=== PATIENT | female | born 1970 | race Caucasian/White ===

== ENCOUNTER 2024-03-11 13:24 | Outpatient (OUT) | payer OTHER, SELFPAY ==
--- NOTE | 2024-03-11 13:39 | ECG_ITS ---
[facility] Test Date: 2024-03-11 Pat Name: RUBI UMANA Department: Room: - Gender: Female [employer]ing [employer] Operator: : 1970 Requested By: Sunil Garsia Order Number: [id number] Reading MD: JUN COSTA Measurements Intervals [place] Rate: 74 P: 69 TN: 160 QRS: 43 QRSD: 84 T: 63 QT: 374 QTc: 415 Interpretive Statements SINUS RHYTHM POSSIBLE RIGHT VENTRICULAR CONDUCTION DELAY [RSR (QR) IN V1/V2] No previous ECG available for comparison Electronically Signed On 03-11-2024 23:02:35 EDT by JUN COSTA
--- NOTE | 2024-03-11 14:19 | P.GSHP_ITS ---
History of Present Illness History of Present Illness Chief complaint: urethral tumor, urethral stenosis Narrative: Patient presents for preadmission testing. The patient reports a history of incomplete bladder emptying, frequency and urgency with urination, and nocturia. The patient states she had 2 recent UTIs and was sent to urology for consultation followed by a local cystoscopy which demonstrated a narrowed urethra. The patient denies hematuria, nausea, vomiting, fever, or any other complaints. Review of Systems ROS Narrative REVIEW OF SYSTEMS: Negative except as stated in HPI, ten or more systems reviewed. Constitutional: No fever, chills, weakness ENT: No sore throat or epistaxis Cardiovascular: No edema, chest pain, palpitations, or activity intolerance Respiratory: No shortness of breath, cough, or wheezing Musculoskeletal: No joint pain or swelling Gastrointestinal: No abdominal pain, constipation, diarrhea, or vomiting Genitourinary: No dysuria or hematuria Neurological: No numbness, tingling, weakness, or headache Psychiatric: No mood changes PFSH [facility] Medical History (Updated 03/11/24 @ 14:16 by Caryn Shah NP) Spinal cord tumor (~2019) ?D49.7 - Neoplasm of unspecified behavior of endocrine glands and other parts of nervous system (ICD-10) Neck pain ?M54.2 - Cervicalgia (ICD-10) Back pain ?M54.9 - Dorsalgia, unspecified (ICD-10) Depression ?F32.A - Depression, unspecified (ICD-10) Migraine ?G43.909 - Migraine, unspecified, not intractable, without status migrainosus (ICD-10) Urinary tract infection ?N39.0 - Urinary tract infection, site not specified (ICD-10) IBS (irritable bowel syndrome) ?K58.9 - Irritable bowel syndrome without diarrhea (ICD-10) 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 - Other somatoform disorders (ICD-10) GERD (gastroesophageal reflux disease) ?K21.9 - Gastro-esophageal reflux disease without esophagitis (ICD-10) Diverticulitis ?K57.92 - Diverticulitis of intestine, part unspecified, without perforation or abscess without bleeding (ICD-10) Anxiety ?F41.9 - Anxiety disorder, unspecified (ICD-10) Urethral stenosis Urethral tumor ?D49.59 - Neoplasm of unspecified behavior of other genitourinary organ (ICD- 10) Surgical History (Updated 03/11/24 @ 14:16 by Caryn Shah NP) S/P cystoscopy (02/27/24) ?Z98.890 - Other specified postprocedural states (ICD-10) History of spinal surgery (~2018) ?Z98.890 - Other specified postprocedural states (ICD-10) History of hernia repair ?Z98.890 - Other specified postprocedural states (ICD-10) ?Z87.19 - Personal history of other diseases of the digestive system (ICD-10) History of colonoscopy ?Z98.890 - Other specified postprocedural states (ICD-10) History of esophagogastroduodenoscopy (EGD) ?Z98.890 - Other specified postprocedural states (ICD-10) History of cholecystectomy ?Z90.49 - Acquired absence of other specified parts of digestive tract (ICD- 10) History of section ?Z98.891 - History of uterine scar from previous surgery (ICD-10) Family History (Updated 03/11/24 @ 14:03 by Caryn Shah NP) Other Family history of DVT Family history of heart disease Family history of hypertension Family history of myocardial infarction Social History (Updated 03/11/24 @ 13:57 by Caryn Shah NP) Within the past year, how often did you have a drink containing alcohol: 4 or more times a week Within the past year, how many standard drinks containing alcohol did you have on a typical day: 1 or 2 Total score: 0 Score interpretation: A score less than 3 is consistent with normal alcohol consumption. Smoking status: Former smoker Non-prescribed substance use: denies use Previous occupational history: Billing Department Supervisor Highest level of school completed/degree received: high school graduate Meds Home Medications and Allergies Home Medications ?Medication ?Instructions ?Recorded ?Confirmed ?Type alprazolam 0.5 mg tablet 0.5 mg PO DAILY PRN anxiety 03/11/24 03/11/24 History citalopram 20 mg tablet 20 mg PO QPM 03/11/24 03/11/24 History esomeprazole magnesium 40 mg 40 mg PO Q24H PRN heartburn 03/11/24 03/11/24 History capsule,delayed release estradiol 0.01% (0.1 mg/gram) 1 appful vaginal .3 times weekly 03/11/24 03/11/24 History vaginal cream gabapentin 300 mg capsule 300 mg PO DAILY 03/11/24 03/11/24 History magnesium 200 mg tablet 200 mg PO DAILY 03/11/24 03/11/24 History sour aguirre extract 1,000 mg 1,000 mg PO DAILY 03/11/24 03/11/24 History capsule Allergies Allergy/AdvReac Type Severity Reaction Status Date / Time amoxicillin Allergy Rash Verified 03/11/24 13:52 methylprednisolone Allergy Rash Verified 03/11/24 13:52 [From Medrol] minocycline Allergy Dizziness Verified 03/11/24 13:52 Sulfa (Sulfonamide Allergy Rash Verified 03/11/24 13:52 Antibiotics) Exam Narrative Exam Narrative: Constitutional: Awake, alert, comfortable, well-appearing, nontoxic, interactive, vital signs as charted Head: Normocephalic, atraumatic Neck: Supple, normal appearance, normal range of motion, no meningeal signs, no lymphadenopathy Respiratory: No respiratory distress, breath sounds clear Cardiovascular: Regular rate and rhythm, strong and regular heart tones Abdomen: Nontender, normal bowel sounds, soft, no CVA tenderness Musculoskeletal: Normal gait, no swelling or edema Skin: No rashes or induration, no lesions, only visible skin inspected Neuro: No neurological deficits, normal sensation Psychiatric: Oriented ?3, normal affect Assessment and Plan Assessment and Plan (1) Urethral tumor: (2) Urethral stenosis: Plan Cystoscopy, urethral dilation, urethral biopsy scheduled with Dr. Matthews March 18, 2024
[2024-03-11 14:41] LABS: Anion Gap 8.5; BUN Creatinine Ratio 17.8; Calcium 9.2 mg/dL (8.5-10.1); Chloride 104 mmol/L (98-107); Estimated GFR (African America >60 (>=60); Estimated GFR (Non-African Ame >60 (>=60); Glucose 104 mg/dL (74-106); Potassium 4.5 mmol/L (3.5-5.1); Sodium 137 mmol/L (136-145)
== END 2024-03-11 13:25 | disposition home or self-care (01) ==
LOC: PST 13:28
PROVIDERS: PCP Family Medicine; Visit Provider Urology
DX: Z01.810 Encounter for preprocedural cardiovascular examination (principal); Z01.812 Encounter for preprocedural laboratory examination; Z01.818 Encounter for other preprocedural examination; D30.4 Benign neoplasm of urethra
CPT/HCPCS: 36415; 80048; 93005; G0463

== ENCOUNTER 2024-03-18 12:30 | Day surgery (SDC) | payer OTHER, SELFPAY ==
[2024-03-11 14:13] VITALS: BP 128/86; PULSE 81; TEMP 36.4; O2SAT 98; BMI 21.1
[2024-03-18 12:35] VITALS: BMI 21.0; BMI 26.8
--- OUTSIDE RECORDS SUMMARY | 2024-03-18 12:38 | XMS_ITS | CCD ---
Author Organization [facility] Care Team Providers Care Front Desk Monitor Name Role Phone SUNIL TORRE Primary Care Unavailable UNKNOWN, PROVIDER Attending Unavailable NICHO, SUNIL Referring Unavailable UNKNOWN, PROVIDER Admitting Unavailable UNKNOWN, PROVIDER Attending Unavailable UNKNOWN, PROVIDER Admitting Unavailable KUNSilvano, SUNIL Referring Unavailable KUNSilvano, SUNIL Primary Care Unavailable UNKNOWN, PROVIDER Attending Unavailable UNKNOWN, PROVIDER Admitting Unavailable NICHO, SUNIL Referring Unavailable SUNIL TORRE Primary Care Unavailable LOWELL MATT Admitting Unavailable LOWELL MATT Attending Unavailable NICHO, DR BARBER Primary Care Unavailable LOWELL MATT Consulting Unavailable Shamika Bullock Consulting Unavailable Sunil Torre Unavailable Georgia Deluna Unavailable Maria Inse Rodriguez Unavailable Nicho, DO Barber Primary Care Provider MD Lisandro Flores Attending Provider Nicho, Sunil Primary Care Provider [phone] MD Lisandro Flores Attending Provider Nicho, DO Barber Primary Care Provider DO Sunil Torre Attending Provider [phone] MD Lisandro Flores Attending Provider Georgia Washington Unavailable Austins, DO Barber Primary Care Provider [phone] DO Sunil Torre Attending Provider [phone] Nicho, Sunil Primary Care Provider MD Lisandro Flores Attending Provider ISRA NEAL Attending Unavailable ISRA NEAL Referring Unavailable ISRA NEAL Referring Unavailable DO Silvestre Torrean Attending Provider [phone] LISANDRO FLORES Attending Unavailable FLORES, LISANDRO Referring Unavailable SANDRA, LISANDRO Referring Unavailable SUNIL TORRE Primary Care Physician DO Sunil Torre Primary Care Provider MD Lisandro Flores Attending Provider [phone] MD Estephania Matthews Attending Provider Estephania Matthews. Attending Unavailable KUNS, SUNIL Referring Unavailable Helene Villafana Attending Unavailable Estephania Matthews. Referring Unavailable Estephania Matthews Attending Unavailable Kuns, Sunil Attending Unavailable Kuns, Sunil Admitting Unavailable Kuns, Sunil Primary Care Unavailable Kuns, Sunil Attending Unavailable Kuns, Sunil Admitting Unavailable Kuns, Sunil Primary Care Unavailable LuEstephania fine M Admitting Unavailable Estephania Matthews Attending Unavailable Kuns, Sunil Primary Care Unavailable Kuns, Sunil Attending Unavailable Kuns, Sunil Admitting Unavailable Kuns, Sunil Primary Care Unavailable Kuns, Sunil Attending Unavailable Kuns, Sunil Admitting Unavailable Kuns, Sunil Primary Care Unavailable Kuns, Sunil Attending Unavailable Kuns, Sunil Admitting Unavailable Flores, Lisandro L Admitting Unavailable Flores, Lisandro L Attending Unavailable Kuns, Sunil Primary Care Unavailable Flores, Lisandro L Admitting Unavailable Flores, Lisandro L Attending Unavailable Kuns, Sunil Primary Care Unavailable Allergies Allergy Classification Reported Allergen(s) Allergy Type Date of Onset Reaction(s) Facility (20 sources) Amoxicillin; Translations: [AMOXICILLIN] Drug Allergy 10-16-19 rash, Eruption of skin (disorder) [facility] (2 sources) methylPREDNISolone; Translations: [MEDROL] Drug Allergy 10-16-19 [facility] (20 sources) Minocycline; Translations: [MINOCIN] Drug Allergy 10-16-19 lightheaded [facility] (2 sources) Sulfamethoxazole / Trimethoprim; Translations: [BACTRIM] Drug Allergy 10-16-19 [facility] (1 source) Citalopram Drug Allergy [facility] (20 sources) methylPREDNISolone; Translations: [METHYLPREDNISOLONE] Drug Allergy 07-18-19 rash, Eruption of skin (disorder) [facility] (20 sources) Sulfamethoxazole / Trimethoprim; Translations: [sulfamethoxazole-trim ethoprim] Drug Allergy rash, Eruption of skin (disorder) [facility] (20 sources) Minocycline; Translations: [minocycline] Drug Allergy 07-18-19 Eruption of skin (disorder) [facility] (15 sources) Sulfamethoxazole; Translations: [sulfamethoxazole] Drug Allergy 07-18-19 [facility] (15 sources) Trimethoprim; Translations: [trimethoprim] Drug Allergy 07-18-19 [facility] (20 sources) Sucralfate; Translations: [sucralfate] Drug Allergy 06-28-19 Upset stomach (finding) [facility] (2 sources) Sulfamethoxazole / Trimethoprim; Translations: [SULFAMETHOXAZOLE-TRIM ETHOPRIM] Drug Allergy 02-29-20 [facility] (1 source) methylPREDNISolone Drug Allergy 12-27-19 [facility] (1 source) Sucralfate Drug Allergy 12-27-19 [facility] Medications Current Medications Medication Drug Class(es) Dates Sig (Normalized) Sig (Original) ALPRAZolam 0.5 mg oral tablet (20 sources) Benzodiazepine Start: 12-27-2023 End: 12-27-2023 take 1 tablet by mouth every six hours Alprazolam (Xanax) 0.5 mg tablet Active 0.5 MG PO Every 6 hours December 27, 2023 11:46am Start: 10-01-2022 take 1-2 tablets by mouth every six hours as needed Xanax 0.5 MG 1--2 tablets Orally Q 6 hrs prn PRN Sep, Not-Taking/PRN Start: 01-30-2022 take 1-2 tablets by mouth every six hours as needed Xanax 0.5 MG 1--2 tablets Orally Q 6 hrs prn PRN Jan, Active Start: 08-25-2021 take 1-2 tablets by mouth every six hours as needed Xanax 0.5 MG 1--2 tablets Orally Q 6 hrs prn PRN Aug, Active Start: 03-13-2021 take 1-2 tablets by mouth every six hours as needed Xanax 0.5 MG 1--2 tablets Orally Q 6 hrs prn PRN Feb, Active betamethasone 1 mg/ml topical cream (3 sources) Corticosteroid Start: 07-24-2022 Betamethasone Valerate 0.1 % 1 application Externally Once a day Jul, Active calcium carbonate 1500 mg / cholecalciferol 800 unt oral tablet (14 sources) Vitamin D Start: 06-30-2020 take 1 tablet by mouth once daily Calcium Carbonate-Vitamin D3 (Caltrate With Vitamin D3) 600 mg(1,500mg) -800 unit Tablet Active 1 TAB PO Daily June 30, 2020 1:00am citalopram 20 mg oral tablet (20 sources) Serotonin Reuptake Inhibitor Start: 12-27-2023 take 20 mg by mouth once daily Citalopram Active 20 MG PO Daily December 27, 2023 12:00am Start: 04-25-2021 take 1 tablet by carolin th every twenty-four hours Citalopram Hydrobromide 20 MG 1 tablet Orally Once a day for 90 days Apr, Active Start: 07-18-2020 End: 12-27-2023 take 1 tablet by mouth once daily at bedtime Citalopram (Celexa) 10 mg Tablet Discontinued 10 MG PO Daily at bedtime July 18, 2020 1:00am December 27, 2023 10:28am Start: 06-30-2020 End: 07-18-2020 take 1 tablet by mouth once daily Citalopram (Celexa) 40 mg Tablet Discontinued 40 MG PO Daily June 30, 2020 1:00am July 18, 2020 3:44pm esomeprazole 40 mg delayed release oral capsule (20 sources) Proton Pump Inhibitor Start: 06-30-2020 Esomeprazole Magnesi um (Nexium) 40 mg capsule,delayed release(DR/EC) Active 40 MG PO As Directed June 30, 2020 1:00am 2 capsules take 2 capsules by m outh every twenty-four hours NexIUM 40 MG 2 capsules Orally Once a day for 90 days Active Fluocinonide (18 sources) Corticosteroid Fluocinonide 0.0 5 % 1 application Externally Twice a day Active Fluocinonide 0.0 5 % 1 application Externally Twice a day Active furosemide 20 mg oral tablet (13 sources) Loop Diuretic Start: 01-24-2021 take 1 tablet by mouth once daily as needed Lasix 20 MG 1 tablet Orally Once a day prn 10 Jan, 2021 Active gabapentin 300 mg oral capsule (20 sources) Anti-epileptic Agent Start: 12-27-2023 take 300 mg by mouth twice daily Gabapentin Active 300 MG PO Twice daily December 27, 2023 10:28am Start: 11-17-2023 End: 12-27-2023 take 300 mg by mouth once Gabapentin Discontinued 300 MG PO Once November 17, 2023 12:00am December 27, 2023 10:29am Start: 01-30-2022 take 1 capsule by mo [facility] every twelve hours Gabapentin 300 MG 1 capsule Orally Twice a day for 90 days Jan, Active hydrOXYzine hydrochloride 50 mg oral tablet (3 sources) Antihistamine Start: 09-25-2022 take 1 tablet by mouth every six hours as needed hydrOXYzine HCl 50 MG 1 tablet Orally q 6 hours prn itch Sep, Active magnesium oxide 400 mg oral tablet (14 sources) Start: 06-30-2020 take 400 mg by mouth once daily Magnesium Oxide Active 400 MG PO Daily June 30, 2020 1:00am predniSONE 20 mg oral tablet (3 sources) Start: 09-25-2022 predniSONE 20 MG 1 tablet Orally BID x 5 days then daily x 5 days for 10 days Sep, Active pregabalin 150 mg oral capsule (20 sources) Start: 01-04-2022 take 1 capsule by mouth every twelve hours Lyrica 150 MG 1 capsule Orally Twice a day Dec, Active Start: 10-06-2021 take 1 capsule by mo uth every twelve hours Lyrica 150 MG 1 capsule Orally Twice a day Sep, Active Start: 06-30-2021 take 1 capsule by mo uth every twelve hours Lyrica 150 MG 1 capsule Orally Twice a day Jun, Active Start: 04-04-2021 take 1 capsule by mo uth every twelve hours Lyrica 150 MG 1 capsule Orally Twice a day Mar, Active Start: 07-18-2020 End: 11-17-2023 take 1 capsule by mouth twice daily Pregabalin (Lyrica) 50 mg Capsule Discontinued 50 MG PO Twice daily July 18, 2020 1:00am November 17, 2023 11:21am sour pitts allergenic extract (14 sources) Non-Standardized Food Allergenic Extract, Non-Standardized Plant Allergenic Extract Start: 06-30-2020 Sour Pitts Extract (Tart Pitts Extract) 1,000 mg Capsule Active 1000 MG PO As Directed June 30, 2020 12:00am Start: 06-30-2020 Sour Pitts Ex tract (Tart Pitts Extract) 1,000 mg Capsule Active 1000 MG PO As Directed June 30, 2020 1:00am sucralfate 1000 mg oral tablet (2 sources) Aluminum Complex Start: 04-03-2022 take 1 tablet by mouth every twelve hours Carafate 1 GM 1 tablet on an empty stomach Orally Twice a day for 30 day(s) Mar, Active terbinafine 250 mg oral tablet (7 sources) Allylamine Antifungal Start: 06-21-2021 take 1 tablet by mouth every twenty-four hours Terbinafine HCl 250 MG 1 tablet Orally Once a day Jun, Active Turmeric Curcumin 500 MG (20 sources) Turmeric Curcumi n 500 MG as directed Orally Active Turmeric Root Extract (14 sources) Start: 06-30-2020 take 1 tablet by mouth once daily Turmeric Root Extract Active 1076 MG PO Daily June 30, 2020 12:00am 2 tablets Start: 06-30-2020 take 1 tablet by mouth once da jacek Turmeric Root Extract Active 1076 MG PO Daily June 30, 2020 1:00am 2 tablets Completed/Discontinued Medications Medication Drug Class(es) Dates Sig (Normalized) Sig (Original) ciprofloxacin 500 mg oral tablet (20 sources) Quinolone Antimicrobial Start: 12-12-2023 End: 12-27-2023 take 1 tablet by mouth twice daily Ciprofloxacin Hcl (Cipro) 500 mg tablet Discontinued 500 MG PO Twice daily December 12, 2023 12:00am December 27, 2023 10:28am Start: 08-13-2023 End: 11-17-2023 take 1 tablet by mouth once daily Ciprofloxacin Hcl Discontinued 500 MG PO .COMPLEX 40 August 13, 2023 1:00am November 17, 2023 11:20am 500 mg orally 1 tablet BID for 10 days and then 1 tablet daily for the next 20 days; Start: 08-02-2023 End: 08-13-2023 take 1 tablet by mouth twice daily Ciprofloxacin Hcl (Cipro) 500 mg tablet Discontinued 500 MG PO Twice daily 05 04August 02, 2023 1:00am August 13, 2023 3:19pm doxepin hydrochloride 25 mg oral capsule (6 sources) Tricyclic Antidepressant take 1 capsule by mouth every twenty-four hours Doxepin HCl 25 MG 1 capsule at bedtime Orally Once a day Not-Taking famotidine 26.6 mg / ibuprofen 800 mg oral tablet (6 sources) Nonsteroidal Anti-inflammatory Drug, Histamine-2 Receptor Antagonist Start: take 1 tablet by mouth every eight hours Duexis 800-26.6 MG 1 tablet Orally Three times a day for 90 days PRN Jul, Not-Taking mesalamine 1200 mg delayed release oral tablet (20 sources) Aminosalicylate Start: End: Mesalamine (Lialda) 1.2 gram tablet,delayed release (DR/EC) Discontinued 1.2 GM PO As Directed June 30, 2020 1:00am November 17, 2023 11:21am 4 tablets Start: 06-20-2020 take 4 tablets by [facility] every twenty-four hours Mesalamine 1.2 GM 4 TABLETS Orally Once a day Jun, Not-Taking nitrofurantoin, macrocrystals 25 mg / nitrofurantoin, monohydrate 75 mg oral capsule (4 sources) Nitrofuran Antibacterial Start: 12-27-2023 End: 02-10-2024 take 1 capsule by mouth twice daily at mealtime Nitrofurantoin Monohyd/M-Cryst (Macrobid) 100 mg capsule Discontinued 100 MG PO Twice daily December 27, 2023 12:00am February 10, 2024 1:03pm must administer with a meal/food spironolactone 100 mg oral tablet (20 sources) Aldosterone Antagonist Start: 06-30-2020 End: 11-17-2023 take 1 tablet by mouth once daily Spironolactone Discontinued 100 MG PO Daily June 30, 2020 1:00am November 17, 2023 11:21am 0.5 tablet traMADol hydrochloride 50 mg oral tablet (14 sources) Opioid Agonist Start: 08-01-2020 End: 11-17-2023 take 0.5-1 tablets by mouth every six hours as needed for pain Tramadol (Ultram) 50 mg tablet Discontinued 50 MG PO Q6H 30 7 August 01, 2020 1:00am November 17, 2023 11:22am 1/2 - 1 tab po q 6 hours prn pain Problems Active Problems Problem Classification Problem Date Documented Da te Episodic/Chronic Abdominal pain (15 sources) Right upper quadrant pain; Translations: [Right upper quadrant pain] Onset: 1 Resolved: 1 Episodic Acquired foot deformities (9 sources) Bunion; Translations: [Hallux valgus (acquired), unspecified foot] Onset: 2 Resolved: 2 Chronic Anxiety disorders (20 sources) Anxiety about body function or health; Translations: [Other specified anxiety disorders] Onset: 1 Resolved: 2 Chronic Biliary tract disease (14 sources) Cholecystitis; Translations: [Cholecystitis, unspecified] 08-01-2020 Episodic Cancer of brain and nervous system (20 sources) Ependymoma ; 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, unspecified] Onset: 4 Chronic Cancer of brain and nervous system (1 source) Personal history of malignant neoplasm of brain Episodic Digestive congenital anomalies (20 sources) Congenital cystic disease of liver; 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] 12-27-2023 Chronic Diseases of white blood cells (20 sources) Leukopenia; Translations: [Decreased white blood cell count, unspecified] Chronic Disorders of lipid metabolism (20 sources) Mixed hyperlipidemia; Translations: [Mixed hyperlipidemia] 12-27-2023 Chronic Diverticulosis and diverticulitis (1 source) Diverticulitis 01-10-2024 Chronic Esophageal disorders (20 sources) Gastroesophageal reflux disease; Translations: [Gastro-esophageal reflux disease without esophagitis] Chronic Essential hypertension (20 sources) Hypertensive disorder; Translations: [Essential (primary) hypertension] 12-27-2023 Chronic Genitourinary symptoms and ill-defined conditions (20 sources) Dysuria; Translations: [Other abnormal findings in urine] Onset: 4 Episodic Immunizations and screening for infectious disease (20 sources) Encounter for screening for other viral diseases; Translations: [Contact with and (suspected) exposure to other viral communicable diseases] Onset: 1 Resolved: 2 Episodic Mycoses (17 sources) Tinea unguium; Translations: [Onychomycosis] Onset: 2 Resolved: 2 Episodic Neoplasms of unspecified nature or uncertain behavior (1 source) Neoplasm of spinal cord 01-10-2024 Episodic Noninfectious gastroenteritis (20 sources) Microscopic colitis; Translations: [Microscopic colitis, unspecified] Chronic Nonspecific chest pain (9 sources) Chest pain; Translations: [Chest pain, unspecified] Onset: 2 Resolved: 2 Episodic Other aftercare (20 sources) H/O: high risk medication; Translations: [Other termination clerk (current) drug therapy] Episodic Other aftercare (5 sources) Drug therapy finding; Translations: [Other termination clerk (current) drug therapy] 12-27-2023 Episodic Other connective tissue disease (4 sources) Pain in right foot; Translations: [PAIN IN RIGHT FOOT] Onset: 2 Episodic Other connective tissue disease (1 source) Pain in left foot; Translations: [PAIN IN LEFT FOOT] Onset: 2 Episodic Other ear and sense organ disorders (1 source) Otalgia, right ear Episodic Other ear and sense organ disorders (1 source) Impacted cerumen, left ear Episodic Other ear and sense organ disorders (12 sources) Noise effects on inner ear; Translations: [Noise effects on inner ear, bilateral] 12-27-2023 Episodic Other ear and sense organ disorders (1 source) Noise effects on inner ear, bilateral Episodic Other gastrointestinal disorders (20 sources) Irritable bowel syndrome with diarrhea; Translations: [Irritable bowel syndrome with diarrhea] 12-27-2023 Chronic Other gastrointestinal disorders (1 source) Irritable bowel syndrome 01-10-2024 Chronic Other gastrointestinal disorders (18 sources) Constipation; Translations: [Constipation, unspecified] Episodic Other gastrointestinal disorders (14 sources) Diarrhea; Translations: [Diarrhea, unspecified] 06-03-2020 Episodic Other inflammatory condition of skin (20 sources) Itching ; Translations: [Pruritus, unspecified] Episodic Other inflammatory condition of skin (6 sources) Pruritus, unspecified; Translations: [Unspecified pruritic disorder] Onset: 1 Resolved: 1 Episodic Other liver diseases (1 source) Liver cyst 01-10-2024 Chronic Other nervous system disorders (1 source) Neuropathy 01-10-2024 Chronic Other non-traumatic joint disorders (10 sources) Hip joint crepitus; Translations: [Other specific joint derangements of right hip, not elsewhere classified] 02-10-2024 Chronic Other non-traumatic joint disorders (1 source) Other specific joint derangements of right hip, not elsewhere classified Chronic Other non-traumatic joint disorders (16 sources) Joint pain; Translations: [Pain in unspecified joint] Episodic Other non-traumatic joint disorders (1 source) Pain in right hip Episodic Other non-traumatic joint disorders (1 source) Pain in left hip Episodic Other non-traumatic joint disorders (3 sources) Pain in right shoulder; Translations: [Pain in joint, shoulder region] 02-10-2024 Episodic Other skin disorders (3 sources) Rash and other nonspecific skin eruption; Translations: [Rash and other nonspecific skin eruption] 02-10-2024 Episodic Other upper respiratory disease (7 sources) Nasal sinus problem; Translations: [Other specified disorders of nose and nasal sinuses] Episodic Other upper respiratory disease (1 source) Other specified disorders of nose and nasal sinuses Episodic Other upper respiratory infections (20 sources) Acute upper respiratory infection, unspecified; Translations: [Viral upper respiratory tract infection] Onset: 1 Resolved: 1 Episodic Residual codes; unclassified (3 sources) Flushing; Translations: [Flushing] Onset: 4 02-10-2024 Episodic Spondylosis; intervertebral disc disorders; other back problems (20 sources) Thoracic back pain; Translations: [Pain in thoracic spine] Onset: 1 Resolved: 2 Episodic Thyroid disorders (20 sources) Hypothyroidism; Translations: [Hypothyroidism, unspecified] 12-27-2023 Chronic Unclassified (1 source) Encounter for general adult medical examination without abnormal findings; Translations: [Encounter for general adult medical examination without abnormal findings] Onset: 3 Urinary tract infections (4 sources) Urinary tract infectious disease; Translations: [Urinary tract infection, site not specified] Onset: 4 Episodic Past or Other Problems Problem Classification Problem Date Documented Da te Episodic/Chronic Bacterial infection; unspecified site (9 sources) Infection due to Escherichia coli; Translations: [Other bacterial infections of unspecified site] Onset: 08-13-2023 08-13-2023 Episodic Other non-traumatic joint disorders (1 source) Pain in unspecified joint Onset: 08-02-2021 Resolved: 08-02-2021 Episodic Residual codes; unclassified (1 source) Edema, unspecified Onset: 04-25-2021 Resolved: 04-25-2021 Episodic Results Test Name Value Interpretation Reference Range Facility [facility] 02-27-2024 L Specimen: [id number] Received: 03/04/24 Status: CHITRA Fitzpatrick Num: [id number] Spec Type: Cytology Subm Dr: Estephania Matthews MD Tissues: A URINECYTO (URINE) Procedures: Cyto Prepstain, PAPSTN Age/ Patient Sex Location Account Attending Physician Lul Umana 53/F [place] [id number] Estephania Matthews MD SPEC NUM: [id number] RECD: 03/04/24 STATUS: CHITRA HERNANDEZBrant NUM: [id number] MARCOS: 02/27/[address]: Estephania Matthews MD ENTERED: 03/04/[address] [facility] [address]: SPEC TYPE: Cytology DEPT: CNG ENTERED BY: [id number] RECV BY: [id number] ORDERED: Cyto Prepstain, PAPSTN ORDERED: Cyto Prepstain, PAPSTN Pathological Diagnosis Urine cytology: -Negative for malignant cell -Only very scant cellularity, including few scattered RBC Clinical Information RECURRENT UTI'S Gross Description Received is 100 mL yellow slightly hazy unfixed fluid for cytology said to have been obtained as urine. ThinPrep preparations are prepared for microscopic examination. (CC/kp) Microscopic Description Microscopic examinations are performed supporting the above interpretation CPT Codes 39761 ---- ---- Specimen: [id number] Received: 03/04/24-1206 Status: CHITRA Fitzpatrick Num: [id number] Spec Type: Cytology Subm Dr: Estephania Matthews MD Tissues: A URINECYTO (URINE) Procedures: Cyto Prepstain, PAPSTN ---- Patient: Lul Umana [id number] (Continued) ---- Signed (signature on file) Ceasar Mancia MD 03/06/24 1108 Normal [facility] Estradiolon 02-11-2024 Estradiol <5.0 Normal . [facility] Comment on above: Result Comment: Adul t Female Range Follicular phase 12.5 - 166.0 Ovulation phase 85.8 - 498.0 Luteal phase 43.8 - 211.0 Postmenopausal <6.0 - 54.7 1st trimester 215.0 - >4300.0 Kristy ECLIA methodology Performed at: [address] [id number] Wastewater Process Engineer: Forest De La Cruz PhD, Phone: [phone] PERFORMED BY: [place] [address] PATHOLOGIST DRUM SANDER TEDDY KWON M.D. Performed By: #### E ST, ESTRADIOL #### [facility] , #### FSH #### [address] Estrogens, Totalon 4 Estrogens, Total 40 pg/mL Normal . [facility] Comment on above: Result Comment: Prep ubertal < 40 Female Cycle: 1-10 Days 16 - 328 11-20 Days 34 - 501 21-30 Days 48 - 350 Post-Menopausal 40 - 244 Performed at: [address] [id number] Wastewater Process Engineer: Evan Abraham MD, Phone: [phone] Performed By: #### E ST, ESTRADIOL #### [facility] , #### FSH #### [address] Follicle Stimulating Hormone on 02-11-2024 Follicle Stimulating Hormone 83.0 m[iU]/mL Normal [facility] Comment on above: Result Comment: FEMA LE NORMALS (PREMENOPAUSE) MID-FOLLICULAR PHASE: 3.9-8.8 mIU/mL MID-CYCLE PEAK: 4.5-22.5 mIU/mL MID-LUTEAL PHASE: 1.8-5.1 mIU/mL FEMALE NORMALS (POSTMENOPAUSE): 16.7-113.6 mIU/mL MALE NORMALS: 1.3-19.3 mIU/mL PERFORMED BY: [place] [address] PATHOLOGIST DRUM SANDER TEDDY KWON M.D. Performed By: #### E ST, ESTRADIOL #### [facility] , #### FSH #### [address] [address] [facility] Follitropin [Units/volume] i n Serum or PlasmaOrdered By: Sunil Torre on 02-11-2024 Follitropin Qn 83.0 m[IU]/mL [facility] Comment on above: FEMALE NORMALS (LAURA ENOPAUSE) MID-FOLLICULAR PHASE: 3.9-8.8 mIU/mL MID-CYCLE PEAK: 4.5-22.5 mIU/mL MID-LUTEAL PHASE: 1.8-5.1 mIU/mLFEMALE NORMALS (POSTMENOPAUSE): 16.7-113.6 mIU/mLMALE NORMALS: 1.3-19.3 mIU/mL Serum or plasma estradiol (E 2) measurement (mass/volume)Ordered By: Sunil Torre on 02-11-2024 E2 [Mass/Vol] pg/mL . [facility] Comment on above: Adult Female Range F ollicular phase 12.5 - 166.0 Ovulation phase 85.8 - 498.0 Luteal phase 43.8 - 211.0 Postmenopausal <6.0 - 54.7 1st trimester 215.0 - >4300.0Roche ECLIA methodologyPerformed at: - [facility] [address] [id number] Director: Forest De La Cruz PhD, Phone: [phone] Total estrogen measurementOr dered By: Sunil Torre on 02-11-2024 Estrogen [Mass/Vol] 40 pg/mL . [facility] Comment on above: Prepubertal < 40 Fem tr Cycle: 1-10 Days 16 - 328 11-20 Days 34 - 501 21-30 Days 48 - 350 Post-Menopausal 40 - 244Performed at: BN - [facility] [address] [id number] Director: Evan Abraham MD, Phone: [phone] Ambulatory Visit Summaryon 0 01-16-2024 Ambulatory Visit Summary Ambulatory Visit Summary LUL UMANA :1970 Visit Date:01/16/2024 Ambulatory Visit Instructions Your Diagnosis Recurrent UTI Feeling of incomplete bladder emptying Your Care Team Attending Physician - Galea SMOKING TOBACCO PACKING MACHINE HANDHelene Contreras Primary Care Physician - SUNIL TORRE DO Referring Physician - SUNIL TORRE DO This Is Your Medications List Contact prescribing physician if questions or concerns citalopram (citalopram 20 mg Tab) gabapentin (gabapentin 300 mg Cap) Procedures Performed section, Cholecystectomy, Colonoscopy, EGD - esophagogastroduodenos copy. Discharge Vitals Temperature (Temporal Artery) 37 ?C Heart Rate (Peripheral) 78 Respiratory Rate 18 Blood Pressure 131/87 Height 173 cm Height 68 in Weight 60.5 kg Weight 133.1 lb BMI 20.21 What to do next You Need to Schedule the Following Appointments Follow Up with Byron MOLINA, Estephania Meier, VAN, URO When: Comments: our materials scheduler will be calling you to schedule cystoscopy/UD Where: Medications What How Much When Instructions Unchanged citalopram (citalopram 20 mg Tab) 1 Tablets Contact prescribing physician if questions or concerns Unchanged gabapentin (gabapentin 300 mg Cap) 180 cap(s), 0 Refill(s) Contact prescribing physician if questions or concerns Allergies amoxicillin (Rash) methylPREDNISolone (Rash) minocycline (Rash) sucralfate (Upset stomach) sulfamethoxazole-trime thoprim (Rash) Problems Ongoing - Any problem that you are currently receiving treatment for. ROBERTH positive Anxiety Cystic disease of liver Diverticulitis GERD (gastroesophageal reflux disease) Hyperlipidemia Hypertension Hypothyroid IBS (irritable bowel syndrome) Neuropathy Spinal cord tumor Patient Survey You may receive a survey via text or e-mail asking about your office visit. Please share your experience with us by completing your survey. We appreciate your feedback and thank you for choosing us for your care. Education Materials Urinary Tract Infection, Adult A urinary tract infection (UTI) is an infection of any part of the urinary tract. The urinary tract includes the kidneys, ureters, bladder, and urethra. These organs make, store, and get rid of urine in the body. An upper UTI affects the ureters and kidneys. A lower UTI affects the bladder and urethra. What are the causes? Most urinary tract infections are caused by bacteria in your genital area around your urethra, where urine leaves your body. These bacteria grow and cause inflammation of your urinary tract. What increases the risk? You are more likely to develop this condition if: ? You have a urinary catheter that stays in place. ? You are not able to control when you urinate or have a bowel movement (incontinence). ? You are female and you: ? Use a spermicide or diaphragm for control. ? Have low estrogen levels. ? Are . ? You have certain genes that increase your risk. ? You are sexually active. ? You take antibiotic medicines. ? You have a condition that causes your flow of urine to slow down, such as: ? An enlarged prostate, if you are male. ? Blockage in your urethra. ? A kidney stone. ? A nerve condition that affects your bladder control (neurogenic bladder). ? Not getting enough to drink, or not urinating often. ? You have certain medical conditions, such as: ? Diabetes. ? A weak disease-fighting system (immunesystem). ? Sickle cell disease. ? Gout. ? Spinal cord injury. What are the signs or symptoms? Symptoms of this condition include: ? Needing to urinate right away (urgency). ? Frequent urination. This may include small amounts of urine each time you urinate. ? Pain or burning with urination. ? Blood in the urine. ? Urine that smells bad or unusual. ? Trouble urinating. ? Cloudy urine. ? Vaginal discharge, if you are female. ? Pain in the abdomen or the lower back. You may also have: ? Vomiting or a decreased appetite. ? Confusion. ? Irritability or tiredness. ? A fever or chills. ? Diarrhea. The first symptom in older adults may be confusion. In some cases, they may not have any symptoms until the infection has worsened. How is this diagnosed? This condition is diagnosed based on your medical history and a physical exam. You may also have other tests, including: ? Urine tests. ? Blood tests. ? Tests for STIs (sexually transmitted infections). If you have had more than one UTI, a cystoscopy or imaging studies may be done to determine the cause of the infections. How is this treated? Treatment for this condition includes: ? Antibiotic medicine. ? Trvj-dkk-rgzedxw medicines to treat discomfort. ? Drinking enough water to stay hydrated. If you have frequent infections or have other conditions such as a kidney stone, (more content not included)... Normal [facility] Urology Office/Clinic Noteon 01-16-2024 Urology Office/Clinic Note Urology Office/Clinic Note Chief Complaint recurrent UTI HPI Staff Evaluation requested by Dr Sunil Torre due to UTI. Pt is a new pt. Never before seen in our office. (Verified on DA) Last CMP 05/31/23 *BUN 12 Crea 0.80 eGFR >60 MRI of thoracic spine 12/16/23 (with mention of kidneys) UA: 08/02/23 LARGE blood. LARGE leuks. NEG Nitrates. +C&S >100k E Coli 08/13/23 NEG blood. TRACE Leuks. NEG Nitrates. 12/27/23 NEG blood. TRACE Leuks. NEG Nitrates. Dysuria: no Incomplete bladder emptying: pt feels she is not emptying most of the time. Straight cath for PVR was 150ml. Hematuria: no Frequency: yes Urgency: yes Nocturia: 2-3 Stream: intermittency most of the time with only a small amount coming out each time Leaking: no Post void dripping: no Wearing pads/ Depends: no Urge incontinence: no Stress incontinence: no Incontinence without Sensory Awareness: no Abdominal pain: lower abdominal cramping lately Flank pain: once in a while. No hx of stones per pt Sexual complaints: no History of Present Illness Staff HPI reviewed and agree. Review of Systems PHQ Score Initial Depression Screen Score: 0 SCORE no fever, chills, malaise, myalgia. no rash/lesions. no chest pain, palpitations, or SOB. no abdominal pain, nausea, vomiting. no unilateral calf swelling, redness, pain Physical Exam Vitals & Measurements T: 37 ?C(Temporal Artery) HR: 78(Peripheral) RR: 18 BP: 131/87 HT: 68 in HT: 173 cm WT: 60.5 kg WT: 133.1 lb BMI: 20.21 General: nontoxic, well-nourished, appears stated age Mouth: moist mucosa Lungs: normal respiratory effort Cardio: regular rate, good distal perfusion Abdomen: nondistended, no suprapubic distention or tenderness, no CVA tenderness Neurologic: Grossly normal Skin: No rashes or suspicious lesions Assessment/Plan New pt referred by Dr. Sunil Torre for recurrent UTI 05/31/23 - BUN 12, Cre 0.8, eGFR >60, Glu 94 1. Recurrent UTI (N39.0: Urinary tract infection, site not specified) 08/02/23 cx - >100k E. Coli, treated with Cipro 500mg BID x10 days per PCP 08/15/23 cx - <9k mixed skin contaminants, treated with Cipro 500mg BID x20 days per PCP 12/29/23 cx - <9k mixed skin contaminants, treated with Macrobid 100mg BID x10 days per PCP BBSQ 18 UA today negative for blood or infection PVR today 150ml (per straight cath due to bladder scanner equipment failure) Pt c/o abdominal pressure, weak stream and frequency for the past few months. Pt reports that doctors told her mother when she was born that pt had a small pee-hole. Pt denies any issues prior to a few months ago. Pt does report going through menopause and pt does c/o vaginal dryness during intercourse. During straight cath at office visit today, 14Fr cath was used and electronic bench technician advised that it was very tight and pt had some pain with advancement of cath. Advised pt that due to her symptoms and PVR, pt could benefit from cysto/UD. Dr. Matthews can also complete a pelvic exam during her cystoscopy to evaluate for vaginal atrophy. Pt questioned if this could be done under anesthesia, advised pt that it could be if needed due to tightness/pain during straight cath today. Pt decided she will attempt under local and if not tolerable, will stop and proceed with sedation at a different time. Pt does report that she has Xanax at home and will take one prior to procedure. Advised pt this is fine but patient must have a road train driver for procedure. Pt verbalized understanding. Pt denies drinking bladder irritants, constipation or DM. Advised pt to continue timed voiding and double-voiding to help with emptying. Will schedule Cysto with UD. The procedure risks, benefits, details, and treatment alternatives have been discussed with the patient. These include bleeding, infection, recurrent scar in over 50%, need for repeat dilation or other procedures, no symptom relief with dilation, among others. Full informed consent has been obtained. Will order Local anesthesia. -Scheduled cystoscopy with Dr. Matthews -Increase fluids, avoid bladder irritants -Complete timed voiding & double voiding -F/U pending cystoscopy Ordered: 45770 Measure Post Void residual urine and/or bladder capacity by US- non-imaging E&M of New Patient Moderate 45-59 Min 98364 Urnls Dip Stick Auto w/o Microscopy POC 80418 2. Feeling of incomplete bladder emptying (R39.14: Feeling of incomplete bladder emptying) PVR today 150ml -See #1 Ordered: E&M of New Patient Moderate 45-59 Min 36448 Follow-up With When Contact Information Byron MOLINA, Estephania Meier, URL, URO Additional Instructions: our materials scheduler will be calling you to schedule cystoscopy/UD Patient Education Urinary Tract Infection, Adult Problem List/Past Medical History Ongoing ROBERTH positive Anxiety Cystic disease of liver Diverticulitis GERD (gastroesophageal reflux disease) Hyperlipidemia Hypertension Hypothyroid IBS (irritable bowel syndrome) Neuropathy Spinal cord tumor Historical (more content not included)... Normal [facility] Comment on above: Result Comment: Elec tronically Signed By: Ledy FUENTES, Helene Collins\.magdy\Date and Time Signed: 01/16/24 14:39 EDT Laboratory - Chemistry and C hemistry - challengeon 12-27-2023 Bilirubin Ql (U) Negative [facility] Glucose (U) [Mass/Vol] Negative [facility] Ketones Ql (U) Negative [facility] pH (U) 6.5 [pH] [facility] Specific gravity (U) [Rel density] 1.010 [facility] Urobilinogen (U) [Mass/Vol] 0.2 mg/dL [facility] Laboratory - Specimen inform ationon 12-27-2023 Appearance (U) clear [facility] Color (U) yellow [facility] Laboratory - Urinalysison Leukocyte esterase Test strip Ql (U) trace [facility] Nitrite Ql (U) Negative [facility] Protein Ql (U) Negative [facility] No Panel Informationon 12-26 Urine Occult Blood Negative [facility] Urine Cultureon 12-27-2023 Bacteria identified Cx Nom (U) <9,000 colonies/ml mixed bacterial skin contaminants 2 Days PERFORMED BY: [place] [address] PATHOLOGIST DRUM SANDER TEDDY KWON M.D. Normal [facility] Comment on above: Performed By: #### C UU #### [address] Urine culture routineOrdered By: Sunil Torre on 12-27-2023 Bacteria identified Cx Nom (U) 2 Days [facility] Office Visiton 12-18-2023 Follow-up visit [id number] Fortino Umana i 1970 F Date Provider Department Center 12/18/2023 426-LISANDRO FLORES ONC DCC Family History Problem Relation Age of Onset Heart attack Mother Rheum arthritis Maternal Grandmother Heart attack Maternal Grandfather Family Status - Relation Status Age at Mother Maternal Grandmother Maternal Grandfather Level of Service:03108 DE OFFICE/OUTPATIENT ESTABLISHED MOD MDM 30 MIN Reason for Visit and Comments: Follow-up [768428] - MRI results Normal [facility] MR thoracic spine wo/w conon 12-16-2023 MR thoracic spine wo/w con [facility] [place] [address] [place] [address] MRI Report Signed Patient: Erin Umana MR#: [id number] 957 : 1970 Acct:[id number] Age/Sex: 53 / F ADM Date: 12/16/23 Loc: Room: Type: [facility] Attending Dr: Lisandro Flores MD Copies to: Lisandro Flores MD Ordering Provider: Lisandro Flores MD Date of Service: 12/16/23 MR/MR thoracic spine wo/w con: C72.0 MRI THORACIC SPINE with and without CONTRAST TECHNIQUE: T1, T2 and STIR sagittal imaging performed with T1 and T2 axial imaging of thoracic spine [id number] cc of ProHance HISTORY: History of surgical removal of spinal cord tumors. Annual monitoring. COMPARISON: 2021. This demonstrated numerous cystic changes of the spinal cord predominantly in the upper thoracic region. LOCALIZATION IMAGING FINDINGS: Unremarkable BONY ALIGNMENT: Adequate segmental alignment identified. BONY LESIONS: None FRACTURE: No acute compression deformity of vertebral bodies identified. DEGENERATION: The disc spaces of the thoracic spine are maintained. FACET ALIGNMENT: Adequate BONY CENTRAL CANAL: Unremarkable SPINAL CORD: There is identification of small cystic lesions within the upper thoracic spinal cord predominantly at the T3 level. These measure up to 5 mm. There is adjacent surrounding hemosiderin ring around the cystic lesions. There is no significant pathologic enhancement identified. Findings are consistent with sequelae of the prior cystic, lesions. This may correspond with subtle residual postsurgical change. There are no worrisome regions of recurrence or new development. NEUROFORAMEN Patent SOFT TISSUES: No paraspinal abnormality is identified. VISUALIZED LUNGS: Unremarkable VISUALIZED AORTA: The visualized aorta is unremarkable. VISUALIZED KIDNEYS: No obstructive uropathy identified. Small hepatic cyst present. Tarlov sacral cyst identified. MR/MR thoracic spine wo/w con IMPRESSION: smaller tiny intramedullary cystic lesions with surrounding hemosiderin deposition in the upper portion of the thoracic spinal cord predominantly at the T3 level. 5 likely corresponds with residual findings of postsurgical changes. No worrisome pathologic enhancement. No additional findings to suggest significant recurrence or development of new spinal cord lesions. Impression dictated by: Stew Lai M.D.12/16/2023 2:53 PM Dictation Location: [place] [address] Transcribed By: [facility] 12/16/23 1453 Dictated By: Stew Lai DO 12/16/23 1434 Signed By: 12/16/23 1453 Normal [facility] BI MAMMOGRAM SCREENING TOMOS YNTHESIS BILATERALon 11-20-2023 BI MAMMOGRAM SCREENING TOMOSYNTHESIS BILATERAL This is a summary report. The complete report is available in the patient's medical record. If you cannot access the medical record, please contact the sending organization for a detailed fax or copy. EXAMINATION: BI MAMMOGRAM SCREENING TOMOSYNTHESIS BILATERAL CLINICAL HISTORY:screening COMPARISON: June 28, 2022. RESULT: Density: Scattered fibroglandular density [2] Overall appearance is stable. Typically benign calcifications. There is no suspicious mass, asymmetry, architectural distortion, or calcification IMPRESSION: BIRADS 2 - Benign Follow-up: Routine Screening Mamm Board Certified Radiologists. Accredited by the ACR and FDA. MAMMOGRAPHY IS VERY IMPORTANT TO YOUR HEALTH. THE [employer] GUIDELINES RECOMMEND THAT WOMEN 40 YEARS OF AGE AND OLDER SHOULD HAVE A MAMMOGRAM EVERY YEAR. A REMINDER LETTER WILL BE SENT AT THE APPROPRIATE TIME. THIS FACILITY UTILIZES A REMINDER SYSTEM TO ENSURE ALL PATIENTS RECEIVE REMINDER NOTIFICATIONS AT THE APPROPRIATE TIME BASED ON THE RECOMMENDATIONS OF THIS EXAM. THIS INCLUDES REMINDERS FOR ROUTINE SCREENING MAMMOGRAMS, DIAGNOSTIC MAMMOGRAMS IN WHICH THE PATIENT IS ASKED TO RETURN FOR ADDITIONAL VIEWS, OR OTHER BREAST IMAGING INTERVENTIONS WHEN APPROPRIATE. THE PATIENT WILL BE PLACED IN THE APPROPRIATE REMINDER SYSTEM INCLUDING A REMINDER AT THE APPROPRIATE TIME FOR ANY PENDING ADDITIONAL VIEWS. TRANSCRIBED BY: ELECTRONICALLY SIGNED BY: Yayo Hart MD Normal Not Available Comment on above: Order Comment: Spot compression and us prn MR cervical spine wo/w conon 11-18-2023 MR cervical spine wo/w con [facility] [place] [address] [place] [address] MRI Report Signed Patient: Erin Umana MR#: [id number] 957 : 1970 Acct:[id number] Age/Sex: 53 / F ADM Date: 11/18/23 Loc: MR Room: Type[facility] Attending Dr: Lisandro Flores MD Copies to: Lisandro Flores MD Ordering Provider: Lisandro Flores MD Date of Service: 11/18/23 MR/MR cervical spine wo/w con: C71.9 MR cervical spine wo/w con 11/18/2023 10:19 AM SIGNS AND SYMPTOMS: History of cervical ependymoma, follow-up PROTOCOL: Multiplanar multisequence MR images of the cervical spine were obtained with and without IV contrast CONTRAST: 12 mL of intravenous ProHance COMPARISON: 11/15/2022 FINDINGS: The bones of the cervical spine are in anatomic alignment. There is preservation of vertebral body heights and intervertebral disc spaces. The marrow signal is within normal limits. There is improvement of a cystic expansion of the central canal the cord at C3-C5 and compared to the prior exam. Subtle irregular expansion of the central canal the cord is noted at T2. This has improved slightly. There is susceptibility within the central canal of the cord throughout consistent with the history of previous ependymoma and hemorrhage. There is evidence of previous posterior decompression from C4 through C6. There is myelomalacia within the cord centered at the C4-C5 intervertebral disc level. This is similar to the prior exam. There are subtle areas of enhancement within the cord at the C3 and C4 levels showing improvement when compared to the prior exam. No epidural or paraspinous fluid collection is appreciated. The visualized paraspinous soft tissues are within normal limits. The prevertebral soft tissues are within normal limits. At C2-C3: There is a normal disc, central canal, and neural foramen. At C3-C4: There is a normal disc, central canal, and neural foramen. At C4-C5: There is a normal disc, central canal, and neural foramen. At C5-C6: There is a normal disc, central canal, and neural foramen. At C6-C7: There is a normal disc, central canal, and neural foramen. At C7-T1: There is a normal disc, central canal, and neural foramen. MR/MR cervical spine wo/w con IMPRESSION: There are subtle areas of enhancement within the cord at the C3 and C4 levels showing improvement when compared to the prior exam. There is improvement of a cystic expansion of the central canal the cord at C3-C5 and compared to the prior exam. Subtle irregular expansion of the central canal the cord is noted at T2. This has improved slightly. There is susceptibility within the central canal of the cord throughout consistent with the history of previous ependymoma and hemorrhage. Impression dictated by: Ricardo Cobb M.D.11/18/2023 4:43 PM Dictation Location: [place] [address] Transcribed By: [facility] 11/18/23 1643 Dictated By: Ricardo Cobb II, MD 11/18/23 1635 Signed By: 11/18/23 1643 Normal [facility] MR lumbar spine wo/w conon 0 11-18-2023 MR lumbar spine wo/w con [facility] [place] [address] [place] [address] MRI Report Signed Patient: Erin Umana MR#: [id number] 957 : 1970 Acct:[id number] Age/Sex: 53 / F ADM Date: 11/18/23 Loc: Room: Type: [facility] Attending Dr: Lisandro Flores MD Copies to: Lisandro Flores MD Ordering Provider: Lisandro Flores MD Date of Service: 11/18/23 MR/MR lumbar spine wo/w con: C71.9 MR lumbar spine wo/w con 11/18/2023 10:19 AM SIGNS AND SYMPTOMS: History of ependymoma removal, follow-up PROTOCOL: Multiplanar multisequence MR images of the lumbar spine were obtained with and without IV contrast CONTRAST: 12 mL of intravenous ProHance COMPARISON: 11/23/2022 FINDINGS: The bones of the lumbar spine are in anatomic alignment. There is preservation of vertebral body heights and intervertebral disc spaces. There is Schmorl's node formation in the endplates at L1 and L2. The marrow signal is within normal limits. Susceptibility is noted within the conus consistent with blood products secondary to known ependymoma. The conus terminates at the superior endplate of the L2 vertebral body level. No epidural or paraspinous fluid collection is appreciated. Tarlov cysts are noted at S2 and S3. At T12-L1: There is a normal disc, central canal, and neural foramen. At L1-L2: There is a focal central disc protrusion slightly to the left midline contributing mild spinal canal narrowing. There is no significant neural foraminal narrowing. At L2-L3: There is a normal disc, central canal, and neural foramen. At L3-L4: There is a normal disc, central canal, and neural foramen. At L4-L5: There is a broad-based disc bulge with facet hypertrophy contributing to mild left neural foraminal narrowing. No spinal canal narrowing. This is unchanged. At L5-S1: There is a normal disc, central canal, and neural foramen. MR/MR lumbar spine wo/w con IMPRESSION: At L1-L2: There is a focal central disc protrusion slightly to the left midline contributing mild spinal canal narrowing. There is no significant neural foraminal narrowing. This is slightly worse when compared to the prior exam. At L4-L5: There is a broad-based disc bulge with facet hypertrophy contributing to mild left neural foraminal narrowing. No spinal canal narrowing. This is unchanged. No abnormal postcontrast enhancement. Susceptibility is noted within the conus consistent with blood products secondary to known ependymoma. Impression dictated by: Ricardo Cobb M.D.11/18/2023 4:35 PM Dictation Location: [place] [address] Transcribed By: [facility] 11/18/23 1635 Dictated By: Ricardo Cobb II, MD 11/18/23 1625 Signed By: 11/18/23 1635 Normal [facility] XR pre/post mri xrayon 11-17 XR pre/post mri xray [facility] [place] [address] [place], [place] [id number] XRay Report Signed Patient: Erin Umana MR#: [id number] 957 : 1970 Acct:[id number] Age/Sex: 53 / F ADM Date: 11/18/23 Loc: MR Room: Type: [facility] Attending Dr: Lisandro Flores MD Copies to: Lisandro Flores MD Ordering Provider: Lisandro Flores MD Date of Service: 11/18/23 XR/XR pre/post mri xray: C71.9 XR pre/post mri xray 11/18/2023 10:19 AM SIGNS AND SYMPTOMS: History of cervical ependymoma, follow-up PROTOCOLS: Lateral and bilateral oblique radiographs of the cervical spine. Frontal and lateral radiograph of the lumbar spine. COMPARISON: None FINDINGS: Cervical spine radiographs: The bones are in anatomic alignment. There is posterior decompression from C4 through C6. The prevertebral soft tissues are within normal limits. There is preservation of the vertebral body heights and intervertebral disc spaces. There is no fracture or destructive lesion. Lumbar spine radiographs: Vertebral body heights are preserved. The intervertebral discs are preserved. Minimal facet degenerative changes are present in the lower lumbar spine. The sacroiliac joints are preserved. No fracture or subluxation. There is evidence of prior cholecystectomy in the right upper quadrant. XR/XR pre/post mri xray IMPRESSION: Cervical spine: Posterior decompression is redemonstrated from C4 through C6 No fracture, subluxation, or significant degenerative change otherwise. Lumbar spine: Mild degenerative changes are noted without evidence of fracture or subluxation. Impression dictated by: Ricardo Cobb M.D.11/18/2023 4:45 PM Dictation Location: [place] [address] Transcribed By: [facility] 11/18/23 1645 Dictated By: Ricardo Cobb II, MD 11/18/23 1643 Signed By: 11/18/23 1645 Normal [facility] No Panel InformationOrdered By: Kim Garcia on 11-17-2023 Quick Strep (POC) [facility] Urine Cultureon 08-13-2023 Bacteria identified Cx Nom (U) <9,000 colonies/ml mixed bacterial skin contaminants 2 Days PERFORMED BY: [facility] [address] [place] [address] PATHOLOGIST DRUM SANDER TEDDY KWON M.D. Normal [facility] Comment on above: Performed By: #### C UU #### [facility] [address] [place], [place] [id number] [facility] Urine Cultureon 08-02-2023 Bacteria identified Cx Nom (U) ORGANISM: Escherichia coli (O:ESCCOL) Mulberry Count >100,000 Aerobic FREIDA Charge (NMIC56) --- SUSCEPTIBILITY -- ORGANISM: O:ESCCOL ANTIBIOTIC INTERPRETATION FREIDA Amikacin S <16 Amoxacillin/K Clavulanate S <8 Ampicillin S <8 Ampicillin/Sulbactam S <4 Aztreonam S <4 Cefazolin S <2 Cefepime S <2 Ceftazidime S <1 Ceftazidime/Avibactam S <4 Ceftolozane/Tazobactam S <2 Ceftriaxone S <1 Cefuroxime S <4 Ciprofloxacin S <0.25 Ertapenem S <0.5 Gentamicin S <2 Levofloxacin S <0.5 Meropenem S <1 Meropenem/Vaborbactam S <2 Nitrofurantoin S <32 Piperacillin/Tazobacta m S <8 Tetracycline S <4 Tigecycline S <2 Tobramycin S <2 Trimethoprim/Sulfameth oxazole S <0.5 S = SUSCEPTIBLE I = INTERMEDIATE R = RESISTANT BLANK = DATA NOT AVAILABLE, OR DRUG NOT ADVISABLE OR TESTED R* = RESISTANCE DUE TO EXTENDED SPECTRUM BETA-LACTAMASES ESBL = EXTENDED SPECTRUM BETA-LACTAMASE TFG = THYMIDINE-DEPENDENT STRAIN QUINN = BETA-LACTAMASE POSITIVE IB = INDUCIBLE BETA-LACTAMASE. APPEARS IN PLACE OF 'S' WITH SPECIES KNOWN TO POSSESS INDUCIBLE BETA-LACTAMASES. POTENTIALLY THEY MAY BECOME RESISTANT TO ALL B-LACTAM DRUGS. PERFORMED BY: [place] [address] PATHOLOGIST DRUM SANDER TEDDY KWON M.D. Normal [facility] Comment on above: Performed By: #### C UU #### [place] [id number] [facility] Urinalysis - AUTOMATEDon Appearance (U) clear [employer] Other Bilirubin Ql (U) Negative [employer] ast [employer] Other Color (U) yelow [employer] Other Glucose Ql (U) Negative [employer] Other Hemoglobin Ql (U) Negative [employer] Other Ketones Ql (U) Negative [employer] Other Leukocyte esterase Test strip Ql (U) Negative [employer] Other Nitrite Ql (U) Negative [employer] Other pH (U) 6.5 [pH] [employer] Other Protein Ql (U) Negative [employer] Other Specific gravity (U) [Rel density] 1.015 [employer] Other Urobilinogen (U) [Mass/Vol] 0.2 mg/dL [employer] Other Urinalysis - AUTOMATED No rt [employer] Other Alanine aminotransferase [En zymatic activity/volume] in Serum or PlasmaOrdered By: Sunil Torre on 05-31-2023 ALT [Catalytic activity/Vol] 9 U/L Normal 7-52 [facility] Comment on above: Order Comment: Reaso n for Exam Wellness examination Performed By: #### L IPID, TSH3, CBC, CMP ####[facility] [id number] [place] [id number] [facility] Albumin [Mass/volume] in Ser um or Plasma by Bromocresol green (BCG) dye binding methoOrdered By: Sunil Torre on 05-31-2023 Albumin BCG dye [Mass/Vol] 4.5 g/dL 3.5-5.7 [facility] Alkaline phosphatase [Enzyma tic activity/volume] in Serum or PlasmaOrdered By: Sunil Torre on 05-31-2023 ALP [Catalytic activity/Vol] 84 U/L Normal 34-104 [facility] Comment on above: Order Comment: Reaso n for Exam Wellness examination Performed By: #### L IPID, TSH3, CBC, CMP ####[place] [address] [address] Aspartate aminotransferase [ Enzymatic activity/volume] in Serum or PlasmaOrdered By: Sunil Torre on 05-31-2023 AST [Catalytic activity/Vol] 14 U/L Normal 13-39 [facility] Comment on above: Order Comment: Reaso n for Exam Wellness examination Performed By: #### L IPID, TSH3, CBC, CMP ####[place] [address] [address] Automated basophil %Ordered By: Sunil Torre on 05-31-2023 Basophils/100 WBC (Bld) 0.7 % Normal . [facility] Comment on above: Order Comment: Reaso n for Exam Wellness examination Performed By: #### L IPID, TSH3, CBC, CMP #### [facility] [address] [place] [address] Automated basophil countOrde red By: Sunil Torre on 05-31-2023 Basophils (Bld) [#/Vol] 0.0 10*3/uL Normal 0.0-0.2 [facility] Comment on above: Order Comment: Reaso n for Exam Wellness examination Result Comment: PERF ORMED BY: [place] [address] PATHOLOGIST DRUM SANDER TEDDY KWON M.D. Performed By: #### L IPID, TSH3, CBC, CMP #### [address] Automated blood monocyte cou ntOrdered By: Sunil Torre on 05-31-2023 Monocytes (Bld) [#/Vol] 0.5 10*3/uL Normal 0.0-0.8 [facility] Comment on above: Order Comment: Reaso n for Exam Wellness examination Performed By: #### L IPID, TSH3, CBC, CMP #### [facility] [address] [place] [address] Automated eosinophil %Ordere d By: Sunil Torre on 05-31-2023 Eosinophils/100 WBC (Bld) 3.1 % Normal . [facility] Comment on above: Order Comment: Reaso n for Exam Wellness examination Performed By: #### L IPID, TSH3, CBC, CMP #### [facility] [address] Automated eosinophil countOr dered By: Sunil Torre on 05-31-2023 Eosinophils (Bld) [#/Vol] 0.1 10*3/uL Normal 0.0-0.45 [facility] Comment on above: Order Comment: Reaso n for Exam Wellness examination Performed By: #### L IPID, TSH3, CBC, CMP #### [facility] [address] Automated monocyte %Ordered By: Sunil Torre on 05-31-2023 Monocytes/100 WBC (Bld) 15.4 % Normal . [facility] Comment on above: Order Comment: Reaso n for Exam Wellness examination Performed By: #### L IPID, TSH3, CBC, CMP #### [facility] [address] Automated neutrophil %Ordere d By: Sunil Torre on 05-31-2023 Neutrophils/100 WBC (Bld) 56.2 % Normal . [facility] Comment on above: Order Comment: Reaso n for Exam Wellness examination Performed By: #### L IPID, TSH3, CBC, CMP #### [facility] [address] [place] [address] [place] Bilirubin.total [Mass/volume ] in Serum or PlasmaOrdered By: Sunil Torre on 05-31-2023 Bilirubin [Mass/Vol] 0.8 mg/dL Normal 0.3-1.0 [facility] Comment on above: Order Comment: Reaso n for Exam Wellness examination Performed By: #### L IPID, TSH3, CBC, CMP ####[facility] [id number] [place] [id number] [place] Calcium [Mass/volume] in Ser um or PlasmaOrdered By: Sunil Torre on 05-31-2023 Calcium [Mass/Vol] 9.9 mg/dL Normal 8.6-10.3 [facility] Comment on above: Order Comment: Reaso n for Exam Wellness examination Performed By: #### L IPID, TSH3, CBC, CMP ####[address] Carbon dioxide, total [Moles /volume] in Serum or PlasmaOrdered By: Sunil Torre on 05-31-2023 CO2 [Moles/Vol] 32.2 mmol/L High 21.0-31.0 [facility] Comment on above: Order Comment: Reaso n for Exam Wellness examination Performed By: #### L IPID, TSH3, CBC, CMP ####[facility] [id number] Chloride [Moles/volume] in S use or PlasmaOrdered By: Sunil Torre on 05-31-2023 Chloride [Moles/Vol] 105 mmol/L Normal 98-107 [facility] Comment on above: Order Comment: Reaso n for Exam Wellness examination Performed By: #### L IPID, TSH3, CBC, CMP ####[facility] [id number] [place] [address] Cholesterol [Mass/volume] in Serum or PlasmaOrdered By: Sunil Torre on 05-31-2023 Cholesterol [Mass/Vol] 148 mg/dL Normal 140-200 [facility] Comment on above: Chol less than 200 m g/dl low riskChol 201-239 mg/dl borderline riskChol 240 mg/dl and greater high risk Order Comment: Reaso n for Exam Wellness examination Result Comment: Chol less than 200 mg/dl low risk Chol 201-239 mg/dl borderline risk Chol 240 mg/dl and greater high risk Performed By: #### L IPID, TSH3, CBC, CMP ####[facility] [id number] [place] [id number] [place] Cholesterol in LDL Calc [Mas s/Vol]Ordered By: Sunil Torre on 05-31-2023 Cholesterol in LDL [Mass/Vol] 73 mg/dL 0-100 [facility] Comment on above: LDL ATP III CLASSIFI CATIONLDL less than 100 mg/dL OptimalLDL 100-129 mg/dL Near or above optimalLDL 130-159 mg/dL Borderline highLDL 160-189 mg/dL HighLDL greater than 189 mg/dL Very high Cholesterol in VLDL Calc [Ma ss/Vol]Ordered By: Sunil Torre on 05-31-2023 Cholesterol in VLDL [Mass/Vol] 18 mg/dL [facility] Complete Blood Count Auto Di ffon 05-31-2023 Mean Corpuscular HGB Conc 33.7 g/dL Normal 32.0-35.0 [facility] Comment on above: Order Comment: Reaso n for Exam Wellness examination Performed By: #### L IPID, TSH3, CBC, CMP #### [facility] [address] NRBC% 0.1 /100{WBC} Normal 0-0.5 [facility] Comment on above: Order Comment: Reaso n for Exam Wellness examination Performed By: #### L IPID, TSH3, CBC, CMP #### [facility] [address] Comprehensive Metabolic Pane aurelia 05-31-2023 Albumin [Mass/Vol] 4.5 g/dL Normal 3.5-5.7 [facility] Comment on above: Order Comment: Reaso n for Exam Wellness examination Performed By: #### L IPID, TSH3, CBC, CMP ####[place] [address] [address] GFR/1.73 sq M.predicted MDRD (S/P/Bld) [Vol rate/Area] mL/min/{1.73_m2} Normal [facility] Comment on above: Order Comment: Reaso n for Exam Wellness examination Performed By: #### L IPID, TSH3, CBC, CMP ####[facility] [id number] Creatinine [Mass/volume] in Serum or PlasmaOrdered By: Sunil Torre on 05-31-2023 Creatinine [Mass/Vol] 0.80 mg/dL Normal 0.60-1.20 [facility] Comment on above: Order Comment: Reaso n for Exam Wellness examination Performed By: #### L IPID, TSH3, CBC, CMP ####[facility] [id number] Erythrocyte distribution wid th [Ratio] by Automated countOrdered By: Sunil Torre on 05-31-2023 Erythrocyte distribution width (RBC) [Ratio] 12.8 % Normal 11.9-15.3 [facility] Comment on above: Order Comment: Reaso n for Exam Wellness examination Performed By: #### L IPID, TSH3, CBC, CMP #### [facility] [address] Erythrocytes [#/volume] in B lood by Automated countOrdered By: Sunil Torre on 05-31-2023 RBC (Bld) [#/Vol] 4.10 10*6/uL Normal 3.60-5.00 [facility] Comment on above: Order Comment: Reaso n for Exam Wellness examination Performed By: #### L IPID, TSH3, CBC, CMP #### [facility] [address] [place] [address] [place] Glucose [Mass/volume] in Ser um or PlasmaOrdered By: Sunil Torre on 05-31-2023 Glucose [Mass/Vol] 94 mg/dL Normal 70-100 [facility] Comment on above: ADA recommended refe rence rangeRandom Glucose Reference Range is dependent on time and content of last meal. Glucose of more than 200 mg/dL in a nonstressed, ambulatory subject supports the diagnosis of Diabetes Mellitus. Order Comment: Reaso n for Exam Wellness examination Result Comment: [place] om Glucose Reference Range is dependent on time and content of last meal. Glucose of more than 200 mg/dL in a nonstressed, ambulatory subject supports the diagnosis of Diabetes Mellitus. ADA recommended reference range Performed By: #### L IPID, TSH3, CBC, CMP ####[facility] [id number] [place] [id number] [facility] Hematocrit [Volume Fraction] of Blood by Automated countOrdered By: Sunil Torre on 05-31-2023 Hematocrit (Bld) [Volume fraction] 39.5 % Normal 34.0-46.4 [facility] Comment on above: Order Comment: Reaso n for Exam Wellness examination Performed By: #### L IPID, TSH3, CBC, CMP #### [facility] [address] Hemoglobin [Mass/volume] in BloodOrdered By: Sunil Torre on 05-31-2023 Hemoglobin (Bld) [Mass/Vol] 13.3 g/dL Normal 11.8-15.4 [facility] Comment on above: Order Comment: Reaso n for Exam Wellness examination Performed By: #### L IPID, TSH3, CBC, CMP #### [facility] [address] Leukocytes [#/volume] correc alexy for nucleated erythrocytes in Blood by Automated counOrdered By: Sunil Torre on 05-31-2023 WBC corrected for nucl RBC Auto (Bld) [#/Vol] 3.2 10*3/uL 3.8-11.6 [facility] Leukocytes [#/volume] in Blo od by Automated countOrdered By: Sunil Torre on 05-31-2023 WBC (Bld) [#/Vol] 3.2 10*3/uL Low 3.8-11.6 [facility] Comment on above: Order Comment: Reaso n for Exam Wellness examination Performed By: #### L IPID, TSH3, CBC, CMP #### [facility] [address] Lipid Panelon 05-31-2023 LDL Cholesterol,Calculated 73 mg/dL Normal 0-100 [facility] Comment on above: Order Comment: Reaso n for Exam Wellness examination Result Comment: LDL ATP III CLASSIFICATION LDL less than 100 mg/dL Optimal LDL 100-129 mg/dL Near or above optimal LDL 130-159 mg/dL Borderline high LDL 160-189 mg/dL High LDL greater than 189 mg/dL Very high Performed By: #### L IPID, TSH3, CBC, CMP ####[facility] [id number] Triglyceride w/Reflex 94 mg/dL Normal 0-149 [facility] Comment on above: Order Comment: Reaso n for Exam Wellness examination Result Comment: TRIG ATP III CLASSIFICATION TRIG less than 150 mg/dL Normal TRIG 150-199 mg/dL Borderline high TRIG 200-500 mg/dL High TRIG greater than 500 mg/dL Very high Standard traceable to the Center for Disease Conrtrol and Prevention (CDC) test method. Performed By: #### L IPID, TSH3, CBC, CMP ####[facility] VLDL CHOLESTEROL 18 mg/dL Normal [facility] Comment on above: Order Comment: Reaso n for Exam Wellness examination Performed By: #### L IPID, TSH3, CBC, CMP ####[address] Lymphocytes [#/volume] in Bl ood by Automated countOrdered By: Sunil Torre on 05-31-2023 Lymphocytes (Bld) [#/Vol] 0.8 10*3/uL Low 1.00-4.8 [facility] Comment on above: Order Comment: Reaso n for Exam Wellness examination Performed By: #### L IPID, TSH3, CBC, CMP #### [facility] [address] [place] [address] [place] Lymphocytes/100 leukocytes i n Blood by Automated countOrdered By: Sunil Torre on 05-31-2023 Lymphocytes/100 WBC (Bld) 24.6 % Normal . [facility] Comment on above: Order Comment: Reaso n for Exam Wellness examination Performed By: #### L IPID, TSH3, CBC, CMP #### [facility] [address] MCH [Entitic mass] by Automa alexy countOrdered By: Sunil Torre on 05-31-2023 MCH (RBC) [Entitic mass] 32.4 pg Normal 24.7-34.3 [facility] Comment on above: Order Comment: Reaso n for Exam Wellness examination Performed By: #### L IPID, TSH3, CBC, CMP #### [facility] [address] MCHC Auto (RBC) [Mass/Vol]Or dered By: Sunil Torre on 05-31-2023 MCHC (RBC) [Mass/Vol] 33.7 g/dL 32.0-35.0 [facility] MCV [Entitic volume] by Auto mated countOrdered By: Sunil Torre on 05-31-2023 MCV (RBC) [Entitic vol] 96.2 fL Normal 80-100 [facility] Comment on above: Order Comment: Reaso n for Exam Wellness examination Performed By: #### L IPID, TSH3, CBC, CMP #### [address] Neutrophils [#/volume] in Bl ood by Automated countOrdered By: Sunil Torre on 05-31-2023 Neutrophils (Bld) [#/Vol] 1.8 10*3/uL Normal 1.8-7.7 [facility] Comment on above: Order Comment: Reaso n for Exam Wellness examination Performed By: #### L IPID, TSH3, CBC, CMP #### [facility] [address] [place] [address] No Panel InformationOrdered By: Sunil Torre on 05-31-2023 Estimated GFR (CKD-EPI) > 60.0 mL/Min [facility] Creatinine Clearance (Chem N/A [facility] Nucleated erythrocytes [Pres ence] in Blood by Automated countOrdered By: Sunil Torre on 05-31-2023 Nucleated RBC Auto Ql (Bld) 0.1 /100{WBC} 0-0.5 [facility] Platelet mean volume [Entiti c volume] in Blood by Automated countOrdered By: Sunil Torre on 05-31-2023 Platelet mean volume (Bld) [Entitic vol] 7.7 fL Normal 6.3-10.7 [facility] Comment on above: Order Comment: Reaso n for Exam Wellness examination Performed By: #### L IPID, TSH3, CBC, CMP #### [facility] [address] [place] [address] Platelets [#/volume] in Bloo d by Automated countOrdered By: Sunil Torre on 05-31-2023 Platelets (Bld) [#/Vol] 175 10*3/uL Normal 150-450 [facility] Comment on above: Order Comment: Reaso n for Exam Wellness examination Performed By: #### L IPID, TSH3, CBC, CMP #### [facility] [address] Potassium [Moles/volume] in Serum or PlasmaOrdered By: Sunil Torre on 05-31-2023 Potassium [Moles/Vol] 4.2 mmol/L Normal 3.5-5.1 [facility] Comment on above: Order Comment: Reaso n for Exam Wellness examination Performed By: #### L IPID, TSH3, CBC, CMP ####[facility] [id number] Protein [Mass/volume] in Ser um or PlasmaOrdered By: Sunil Torre on 05-31-2023 Protein [Mass/Vol] 6.7 g/dL Normal 6.4-8.9 [facility] Comment on above: Order Comment: Reaso n for Exam Wellness examination Performed By: #### L IPID, TSH3, CBC, CMP ####[place] [address] [address] Serum globulin measurement b y calculation (mass/volume)Ordered By: Sunil Torre on 05-31-2023 Globulin (S) [Mass/Vol] 2.2 g/dL Normal [facility] Comment on above: Order Comment: Reaso n for Exam Wellness examination Performed By: #### L IPID, TSH3, CBC, CMP ####[facility] [id number] [address] Serum or plasma albumin/glob ulin mass ratioOrdered By: Sunil Torre on 05-31-2023 Albumin/Globulin [Mass ratio] 2.0 {ratio} Normal [facility] Comment on above: Order Comment: Reaso n for Exam Wellness examination Performed By: #### L IPID, TSH3, CBC, CMP ####[facility] Serum or plasma anion gap de terminationOrdered By: Sunil Torre on 05-31-2023 Anion gap [Moles/Vol] 9.0 mmol/L Normal 6.0-15.0 [facility] Comment on above: Order Comment: Reaso n for Exam Wellness examination Performed By: #### L IPID, TSH3, CBC, CMP ####[place] [address] [address] Serum or plasma high density lipoprotein (HDL) cholesterol measurementOrdered By: Sunil Torre on 05-31-2023 Cholesterol in HDL [Mass/Vol] 56 mg/dL Normal 23-92 [facility] Comment on above: HDL CHOL ATP-III CLA SSIFICATION Cardiovascular RiskHDL > or equal to 60 mg/dL LOWHDL < 40 mg/dL HIGH Order Comment: Reaso n for Exam Wellness examination Result Comment: HDL CHOL ATP-III CLASSIFICATION Cardiovascular Risk HDL > or equal to 60 mg/dL LOW HDL < 40 mg/dL HIGH Performed By: #### L IPID, TSH3, CBC, CMP ####[address] Serum or plasma total choles terol/high density lipoprotein (HDL) cholesterol mass ratOrdered By: Sunil Torre on 05-31-2023 Cholesterol.total/Jennifer sterol in HDL [Mass ratio] 2.6 {ratio} Normal <5.0 [facility] Comment on above: Order Comment: Reaso n for Exam Wellness examination Performed By: #### L IPID, TSH3, CBC, CMP ####[address] Sodium [Moles/volume] in Ser um or PlasmaOrdered By: Sunil Torre on 05-31-2023 Sodium [Moles/Vol] 142 mmol/L Normal 136-145 [facility] Comment on above: Order Comment: Reaso n for Exam Wellness examination Performed By: #### L IPID, TSH3, CBC, CMP ####[address] Thyrotropin [Units/volume] i n Serum or PlasmaOrdered By: Sunil Torre on 05-31-2023 TSH Qn 2.73 m[IU]/L Normal 0.45-5.33 [facility] Comment on above: Order Comment: Reaso n for Exam Wellness examination Result Comment: PERF ORMED BY: [facility] [address] [place] [address] PATHOLOGIST DRUM SANDER TEDDY KWON M.D. Performed By: #### L IPID, TSH3, CBC, CMP ####[facility] [id number] [address] Triglyceride [Mass/volume] i n Serum or PlasmaOrdered By: Sunil Torre on 05-31-2023 Triglyceride [Mass/Vol] 94 mg/dL 0-149 [facility] Comment on above: TRIG ATP III CLASSIF ICATIONTRIG less than 150 mg/dL NormalTRIG 150-199 mg/dL Borderline highTRIG 200-500 mg/dL High TRIG greater than 500 mg/dL Very highStandard traceable to the Center for Disease Conrtrol and Prevention (CDC) test method. Urea nitrogen [Mass/volume] in Serum or PlasmaOrdered By: Sunil Torre on 05-31-2023 Urea nitrogen [Mass/Vol] 12 mg/dL Normal 7-25 [facility] Comment on above: Order Comment: Reaso n for Exam Wellness examination Performed By: #### L IPID, TSH3, CBC, CMP ####[facility] [id number] [address] SCREENING MAMMOGRAM W/CHELSEA, BILATERAL*on 06-28-2022 SCREENING MAMMOGRAM W/CHELSEA, BILATERAL* CLINICAL HISTORY: Screening Mammogram COMPARISON: 03/09/2021, 03/12/2020, 09/24/2016, and left breast mammograms and ultrasound 02/16/2020. TECHNIQUE: 2D and 3D Tomosynthesis of the right and left breasts was performed. FINDINGS: DENSITY: Heterogeneously dense. There are no suspicious masses, areas of suspicious microcalcifications or areas of architectural distortion identified. No evidence of skin thickening. IMPRESSION: BIRADS 1 : NEGATIVE, NORMAL INTERVAL FOLLOW UP. Board certified radiologist. Accredited by the ACR and FDA. MAMMOGRAPHY IS VERY IMPORTANT TO YOUR HEALTH. CURRENT [employer] GUIDELINES RECOMMENDS ANNUAL MAMMOGRAPHY BEGINNING AT AGE 40. THIS FACILITY USUALLY USES A REMINDER SYSTEM TO ENSURE ALL POSITIONS RECEIVED REMINDER NOTIFICATIONS AT THE TIME BASED ON THE RECOMMENDATIONS OF THIS EXAM. Report reported and signed by Shamika Valera on 07/02/2022 1105 Normal [facility] [employer] XR FOOT ROBERTO MIN 3 VIEWSon XR FOOT ROBERTO MIN 3 VIEWS EXAM: XR FOOT BI L MIN 3 VIEWS HISTORY: Pain in both feet COMPARISON: None. TECHNIQUE: 4 radiographic views of the bilateral feet FINDINGS: No acute fracture or dislocation. Normal osseous mineralization. Bilateral hallux valgus. Normal longitudinal arch. Mild bilateral great toe MTP degeneration. No erosive changes. No evidence of osseous coalition. Trace bilateral Achilles insertional enthesopathy. IMPRESSION: No acute osseous findings. Bilateral hallux valgus with normal longitudinal arch. Electronically authenticated by: SHAMIKA BULLOCK Date: 2021-10-07 08:57 Normal [facility] MRI LUMBAR SPINE W WO CONTRA STon 08-31-2021 MRI LUMBAR SPINE W WO CONTRAST [facility] Department of Radiology [address] [place] [id number] ======== Patient Name: ERIN RITCHIE : 1970 Sex: F Age: Race: White Pt. 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 Post contrast images obtained in sagittal T1 and axial T1. CONTRAST: Contrast: CLARISCAN .5mmol, 15 milliliter, Intravenous COMPARISON: March 16, 2021 FINDINGS Alignment: Normal Vertebral bodies: Age-appropriate marrow see Disc spaces: Normal The conus terminates at the L1 level. No epidural or paraspinous fluid collection is appreciated At T12-L1: No canal stenosis or foraminal narrowing At L1-L2: No now stenosis or foraminal narrowing At L2-L3: No canal stenosis or foraminal narrowing At L3-L4: Small posterior disc bulge with facet hypertrophy but no canal stenosis. No foraminal narrowing At L4-L5: Posterior disc bulge and facet hypertrophic changes. No canal stenosis. Mild bilateral foraminal narrowing left greater than right At L5-S1: Mild posterior disc bulge. No canal stenosis. Mild left foraminal narrowing. Nerve root sheath cysts identified on the right in the sacral nerve roots. Note is made of mild dilatation of the common bile duct in the head of the pancreas up to 10 mm. Etiology unknown ultrasonography may be helpful for further characterization IMPRESSION: * At L4-L5: Posterior disc bulge and facet hypertrophic changes. No canal stenosis. Mild bilateral foraminal narrowing left greater than right * At L5-S1: Mild posterior disc bulge. No canal stenosis. Mild left foraminal narrowing. Electronically signed: Hailey Granado. Transcribed by: [email or web address], User Resident: Electronically Signed by: HAILEY GRANADO @ 09/04/2021 09:27 AM Normal [facility] Comment on above: Order Comment: to be done late August 2021 MRI CERVICAL SPINE W WO CONT ORACIOTon 2021 MRI CERVICAL SPINE W WO CONTRAST [facility] Department of Radiology [address] [place] [id number] ======== Patient Name: ERIN RITCHIE : 1970 Sex: F Age: Race: White Pt. 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 Post contrast images obtained in sagittal T1, sagittal T1 fat-sat, and axial T1. CONTRAST: Contrast: CLARISCAN .5mmol, 15 milliliter, Intravenous COMPARISON: 03/15/2021 FINDINGS: The bones of the cervical spine are in anatomic alignment. There is preservation of vertebral body heights and intervertebral disc spaces. The marrow signals within normal limits. There is evidence of laminectomy at C3-C6 level similar to prior study. The cord is again demonstrated expansile component with syrinx visualized. Thin syrinx is seen in the upper cervical spine posterior to the dens and C2 similar to prior exam. Oval larger syrinx is seen posterior to C3-C5 level similar to prior study with suggestion of internal septation and peripheral mild rim enhancement. It appears connected to the other superior and inferior syrinx. The third and most inferior syrinx is seen posterior to see 6 and 7 and the previously seen fluid fluid level has decreased in size suggesting layering blood products or proteinaceous debris which appears less since prior study. There is also peripheral rim enhancement surrounding the syrinx. 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 No epidural or paraspinous fluid collection is appreciated. The visualized paraspinous soft tissues are within normal limits apart from mildly enhancing scar tissue at the laminectomy defect posterior to C4-C6 level. The prevertebral soft tissues are within normal limits. IMPRESSION: Evidence of prior C3-C6 laminectomy with mild enhancing scar tissue at the postoperative bed posterior to the spinal canal. 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 Mild thin rim enhancement surrounding the larger to inferior syrinx raising possibility of recurrent tumor. The size of the syrinx is not changed with associated marked thinning of the cervical spinal cord at these levels. Close attention to the rim enhancement area is recommended in follow-up studies No significant disc pathology or canal stenosis at any level. Electronically signed: Sander Burton. Transcribed by: [email or web address], User Resident: Electronically Signed by: SANDER BURTON @ 09/05/2021 09:26 AM Normal [facility] Comment on above: Order Comment: to be done in late August 2021 MRI THORACIC SPINE W WO CONT [facility] 2021 MRI THORACIC SPINE W WO CONTRAST [facility] Department of Radiology [address] [place] [id number] ======== Patient Name: ERIN RITCHIE : 1970 Sex: F Age: Race: White Pt. 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 Post contrast images obtained in sagittal T1 and axial T1. CONTRAST: Contrast: CLARISCAN .5mmol, 15 milliliter, Intravenous COMPARISON: March 16, 2000 FINDINGS: Alignment: Mildly increased kyphosis Vertebral bodies: Age-appropriate marrow signal Signal abnormality consistent with syrinx within the cord from T1 to T5. This syrinx measures approximately 7.3 cm in maximum craniocaudal dimension by 0.8 cm in transverse dimension by 0.9 cm in AP dimension. On T2 images there are areas of some fluid fluid signal left in the syrinx which could indicate that this syrinx contains blood or proteinaceous debris. It is effectively unchanged since previous examination. Posterior to the T5 level there is some increased signal which may represent blood within the syrinx as well. Overall no significant change compared to previous examination no definite enhancement around the syrinx after contrast. The lower cord and thoracic spine are unremarkable IMPRESSION: Cord syrinx from T1 through T5 measurements given above. Contains T2 fluid fluid levels and high signal consistent with some hemorrhage within the syrinx similar to previous exam. No abnormal enhancement. Electronically signed: Hailey Granado. Transcribed by: [email or web address], User Resident: Electronically Signed by: HAILEY GRANADO @ 09/04/2021 09:40 AM Normal [facility] Comment on above: Order Comment: to be done late August 2021 Complete Blood Count Auto Di ffon 06-21-2021 Basophils (Bld) [#/Vol] 0.0 10*3/uL 0.0-0.2 [employer] Other Basophils/100 WBC (Bld) 0.8 % . N [employer] Other Eosinophils (Bld) [#/Vol] 0.1 10*3/uL 0.0-0.45 [employer] Other Eosinophils/100 WBC (Bld) 3.6 % . [employer] Other Erythrocyte distribution width (RBC) [Ratio] 12.5 % 11.9-15.3 [employer] Other Hematocrit (Bld) [Volume fraction] 41.0 % 34.0-46.4 [employer] Other Hemoglobin (Bld) [Mass/Vol] 14.1 g/dL 11.8-15.4 [employer] Other Lymphocytes (Bld) [#/Vol] 0.6 10*3/uL 1.00-4.8 [employer] Other Lymphocytes/100 WBC (Bld) 16.5 % . [employer] Other MCH (RBC) [Entitic mass] 34.0 pg 24.7-34.3 [employer] Other MCH (RBC) [Entitic mass] 34.5 pg 32.0-35.0 [employer] Other MCV (RBC) [Entitic vol] 98.5 fL 80-100 N [facility] [employer] Other Monocytes (Bld) [#/Vol] 0.5 10*3/uL 0.0-0.8 [employer] Other Monocytes/100 WBC (Bld) 13.1 % . N [facility] [employer] Other Neutrophils (Bld) [#/Vol] 2.4 10*3/uL 1.8-7.7 [employer] Other Neutrophils/100 WBC (Bld) 66.0 % . [employer] Other Platelet mean volume (Bld) [Entitic vol] 7.6 fL 6.3-10.7 [employer] Other Platelets (Bld) [#/Vol] 187 10*3/uL 150-450 [employer] Other RBC (Bld) [#/Vol] 4.16 10*6/uL 3.60-5.00 [employer] Other WBC (Bld) [#/Vol] 3.6 10*3/uL 3.8-11.6 [employer] Other Complete Blood Count Auto Diff 3.6 4.5-11.0 [employer] Other Complete Blood Count Auto Diff 0.1 0-0.5 [employer] Other Comprehensive Metabolic Pane aurelia 06-21-2021 Albumin [Mass/Vol] 4.3 g/dL 3.2-5.5 [employer] Other Albumin/Globulin [Mass ratio] 1.5 {ratio} [employer] Other ALP [Catalytic activity/Vol] 73 U/L 32-92 [employer] Other ALT [Catalytic activity/Vol] 18 U/L 10-60 [facility] [employer] Other AST [Catalytic activity/Vol] 22 U/L 10-42 [facility] [employer] Other Bilirubin [Mass/Vol] 0.6 mg/dL 0.3-1.2 [facility] [employer] Other Calcium [Mass/Vol] 9.9 mg/dL 8.2-10.2 [facility] [employer] Other Chloride [Moles/Vol] 103 mmol/L 95-114 [facility] [employer] Other CO2 [Moles/Vol] 26.7 mmol/L 22.0-30.0 [facility] [employer] Other Creatinine [Mass/Vol] 0.86 mg/dL 0.44-1.03 [facility] [employer] Other Glucose [Mass/Vol] 93 mg/dL 70-100 [facility] [employer] Other Potassium [Moles/Vol] 4.2 mmol/L 3.5-5.1 [facility] [employer] Other Protein [Mass/Vol] 7.2 g/dL 6.1-7.9 [facility] [employer] Other Sodium [Moles/Vol] 140 mmol/L 136-146 [facility] [employer] Other Urea nitrogen [Mass/Vol] 16 mg/dL 9-23 [facility] [employer] Other Comprehensive Metabolic Panel > 60 [facility] [employer] Other Comprehensive Metabolic Panel 2.9 [facility] [employer] Other Lipid Panelon 06-21-2021 Cholesterol [Mass/Vol] 181 mg/dL 140-200 No [facility] [employer] Other Cholesterol in HDL [Mass/Vol] 63 mg/dL 35-85 [place] [employer] Other Cholesterol in LDL Elph Qn 102 0-100 [employer] Other Cholesterol.total/Jennifer sterol in HDL [Mass ratio] 2.9 {ratio} <5.0 [employer] Other Lipid Panel 80 35-149 [employer] Other Lipid Panel 16 [employer] Other Thyroid Stimulating Hormoneo n 06-21-2021 TSH Qn 3.54 m[IU]/L 0.45-5.33 [employer] Other Urine 10 SGon 06-21-2021 Albumin DL <= 20 mg/L (U) [Mass/Vol] Negative [employer] Other pH (U) 6.0 [pH] [employer] Other Urine 10 SG Negative [employer] Other Urine 10 SG 1.025 [employer] Other Urine 10 SG 0.2 [employer] Other Operative Reporton Operative Report MR#: [id number] [facility] Pt. Name: Erin Ritchie Room #: PMC Discharge Date: Birthdate: 1970 OPERATIVE REPORT DATE OF SURGERY: 06/05/2021 SURGEON: Jaron Chapman M.D. ASSISTANTS: Leonides Bender MD SEDATION: Moderate sedation provided by Kristy Please note Nursing charts for sedation protocol. PREOPERATIVE DIAGNOSIS: Right Intercostal neuralgia PROCEDURE: Right erector spinae plane block under ultrasound guidance POSTOPERATIVE DIAGNOSIS: Right Intercostal neuralgia ESTIMATED BLOOD COUNT: None. COMPLICATIONS: None. SPECIMENS: None. MONITORS: Standard ASA monitors were placed during the entire procedure and the immediate postoperative period. The patient was communicating with us throughout the whole entire procedure. INFORMED CONSENT: The risks, benefits and alternatives of the procedure were discussed with the patient. The patient was given opportunity to ask questions regarding the procedure, its indications and the associated risks. The risks of the procedure discussed include infection, bleeding, allergic reaction, dural puncture, headache, nerve injuries, spinal cord injury, and cardiovascular and PRODUCTION REPAIRER side effects with possibility of vascular entry of medications. I also informed the patient of potential side effects or reactions to the medications potentially used during the procedure including sedatives, narcotics, nonionic contrast agents, anesthetics, and corticosteroids. The patient was informed both verbally and in writing. The patient understood the informed consent and desired to have the procedure performed. PROCEDURE: After obtaining consent, the patient was brought to the procedure room and was positioned in a seated postion. Using ultrasound guidance, the spinous processes and transverse processes of the mid thoracic spine were identified. The area was prepped with chlorhexidine in sterile fashion. A 22-gauge Stimuplex needle was advanced under ultrasound guidance until reaching the target area between the erector spinae muscle and the transverse process. After negative aspiration, 20 mL of bupivacaine 0.125% and 40mg depomedrol were injected. Lifting of the erector spinae muscle was seen with injection, showing adequate medcation spread. The patient tolerated the procedure well and was transferred to the recovery room in stable condition. POSTPROCEDURE INSTRUCTIONS: Postprocedure vital signs and oximetry were stable. The patient was discharged with instructions to ice the injection site as needed for 15-20 minutes, as frequently as twice per hour for the next day and to avoid aggressive activities for 1 day. The patient was told to resume all medications. The patient was told to be in relative rest for 1 day, but then could resume all normal activities. The patient was instructed to seek immediate medical attention for shortness of breath, chest pain, fever, chills, increased pain, weakness, sensory or motor changes, or changes in bowel or bladder function. Reviewed By: Leonides Bender MD 06/05/2021 05:15 P Edited and Electronically Signed by: Jaron Chapman M.D. 06/06/2021 08:57 P Jaron Chapman M.D. I was present for the entire procedure. Date Dict: 06/05/2021/04:13 P/Leonides Bender MD Date Trans: 06/05/2021 04:13 P/ [id number] cc: Sunil Torre M.D. [address] [place] [address] [place] [address] Normal [facility] COVID Quick Testingon 2020 Result Negative [employer] Other MRI LUMBAR SPINE W WO CONTRA STon 03-16-2021 MRI LUMBAR SPINE W WO CONTRAST [facility] Department of Radiology [address] [place] [phone] ======== Patient Name: ERIN RITCHIE : 1970 Sex: F Age: Race: White Pt. 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 Flores to have Dr. OLIVA to read NPC Req. 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 Post contrast images obtained in sagittal T1 and axial T1. CONTRAST: Contrast: DOTAREM .5mmol, 15 milliliter, Intravenous COMPARISON: 09/06/2020 FINDINGS: The bones of the lumbar spine are in anatomic alignment. There is preservation of vertebral body heights and intervertebral disc spaces revealed minimal disc desiccation at L3-4 and posterior extent L2-3 level. The marrow signals within normal limits with small Schmorl's nodes visualized at the inferior endplate of L2 on L3. The conus terminates at the L1-2 level. No epidural or paraspinous fluid collection is appreciated. No post contrast pathologic enhancement. Incidental perineural cysts are seen at S2 and S3 level similar to prior study At T12-L1: There is a normal disc, central canal, and neural foramen. At L1-L2: There is a normal disc, central canal, and neural foramen. At L2-L3: There is a normal disc, central canal, and neural foramen. At L3-L4: There is a normal disc, central canal, and neural foramen. Mild bilateral ligament of flavum hypertrophy. At L4-L5: Small central disc bulge flattening the thecal sac but without significant canal stenosis. Mild bilateral ligamentum flavum hypertrophy and mild facet joint hypertrophy At L5-S1: There is a normal disc, central canal, and neural foramen. Small right inferior pole renal cysts. IMPRESSION: Minimal lower lumbar spondylosis with small right inferior pole renal cysts and perineural cysts in the sacrum similar to prior study. Otherwise, unremarkable lumbar spine MRI with and without contrast. No evidence of drop metastasis or recurrent tumor Electronically signed: Sander Burton. Transcribed by: [email or web address], User Resident: Electronically Signed by: SANDER BURTON @ 03/19/2021 09:35 AM Normal [facility] Comment on above: Order Comment: penelope fine evaluate MRI THORACIC SPINE W WO CONT Vikram 03-16-2021 MRI THORACIC SPINE W WO CONTRAST [facility] Department of Radiology [address] [place] [phone] ======== Patient Name: ERIN RITCHIE : 1970 Sex: F Age: Race: White Pt. 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 Flores to have Dr. OLIVA to read NPC Req. 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 Post contrast images obtained in sagittal T1 and axial T1. CONTRAST: Contrast: DOTAREM .5mmol, 15 milliliter, Intravenous COMPARISON: None. FINDINGS: Alignment: Normal Vertebral bodies: Normal Disc spaces: There is some T7-T8 disc space narrowing and there is a small disc bulge at this level disc space narrowing is also noted at T6-T7 and T9-T10. There is a cord syrinx present in the thoracic spinal cord extending from T3 through T6. The upper portion of the syrinx demonstrates T2 hyperintense signal in the lower portion is more T2 isointense and likely contains some blood or proteinaceous debris. This syrinx in total measures 7.1 x 0.7 cm. It demonstrates no enhancement after contrast. No other abnormal areas are noted in the inferior thoracic spinal cord. IMPRESSION: Cord syrinx T3 through T6 with variable T2 signal intensity with the inferior portion of the syrinx likely containing some blood or proteinaceous debris. Measurements given above. No abnormal enhancement. Disc space narrowing as detailed above most pronounced at T7-T8 where there is a small disc bulge but no canal stenosis or foraminal narrowing Electronically signed: Hailey rGanado. Transcribed by: [email or web address], User Resident: Electronically Signed by: HAILEY GRANADO @ 03/17/2021 04:36 PM Normal [facility] Comment on above: Order Comment: pleas e evaluate MRI CERVICAL SPINE W WO CONT [facility] 03-15-2021 MRI CERVICAL SPINE W WO CONTRAST [facility] Department of Radiology [address] [place] [phone] ======== Patient Name: ERIN RITCHIE : 1970 Sex: F Age: Race: White Pt. 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 Flores to have Dr. OLIVA to read [facility] Req. 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 Post contrast images obtained in sagittal T1, sagittal T1 fat-sat, and axial T1. CONTRAST: Contrast: DOTAREM .5mmol, 15 milliliter, Intravenous COMPARISON: September 06, 2020 FINDINGS: Alignment: Normal Vertebral bodies: Normal Disc spaces: Normal Spinal cord is abnormal there is an elliptical syrinx posterior to the T2 vertebral body unchanged. Measures 2.8 x 1.45 cm. Measures There is a large distended syrinx posterior to the C2-C4 vertebral body. Measures 2.8 x 1.0 cm. There is a large complex syrinx posterior to the C6 and C7 vertebral bodies. Measures 2.5 x 1.0 cm this contains a fluid fluid level and may contain some blood or proteinaceous debris. The right. Below this the cervical cord is thinned/atretic between T1 and T2 posterior to the T3-T4 level is another syrinx measuring 1.7 x 0.7 cm. The central canal is irregularly dilated in the entire cervical spinal and upper thoracic spinal cord. No abnormal enhancement after contrast administration. Increased signal within the syrinx at C6 level is consistent with blood and is seen on T1 precontrast images. 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 There is no evidence of abnormal enhancement to suggest recurrent ependymoma. The cervix is demonstrates significantly decreased diameter when compared to studies dating back to 2019 and are unchanged since September 06, 2020. This syrinx at the C6 level contains a fluid/fluid level and some blood or proteinaceous debris Electronically signed: Hailey Granado. Transcribed by: [email or web address], User Resident: Electronically Signed by: HAILEY GRANADO @ 03/17/2021 04:16 PM Normal [facility] Comment on above: Order Comment: penelope godinez Operative Reporton Operative Report MR#: [id number] S [facility] Pt. Name: Erin Ritchie Room #: PMC Discharge Date: Birthdate: 1970 OPERATIVE REPORT DATE OF SURGERY: 09/13/2020 SURGEON: Jaron Chapman M.D. ASSISTANTS: Ignacio SEDATION: no sedation PREOPERATIVE DIAGNOSIS: Right Intercostal Neuralgia PROCEDURE: Right Erector Spinae block at T8 POSTOPERATIVE DIAGNOSIS: Right Intercostal Neuralgia ESTIMATED BLOOD COUNT: None. COMPLICATIONS: None. SPECIMENS: None. MONITORS: Standard ASA monitors were placed during the entire procedure and the immediate postoperative period. The patient was communicating with us throughout the whole entire procedure. INFORMED CONSENT: The risks, benefits and alternatives of the procedure were discussed with the patient. The patient was informed both verbally and in writing. The patient understood the informed consent and desired to have the procedure performed. The correct sit was marked. PROCEDURE: After obtaining consent, the patient was brought to the procedure room and was positioned in a seated postion. Using ultrasound guidance, the spinous processes and transverse processes of the mid thoracic spine were identified counting up from the 12th rib. The area was prepped with chlorhexidine in sterile fashion. A 22-gauge Stimuplex needle was advanced under ultrasound guidance until reaching the target area between the erector spinae muscle and the transverse process. After negative aspiration, 20 mL of bupivacaine 0.125% and 40mg depomedrol were injected. Lifting of the erector spinae muscle was seen with injection, showing adequate medcation spread. The patient tolerated the procedure well and was transferred to the recovery room in stable condition. POSTPROCEDURE INSTRUCTIONS: Postprocedure vital signs and oximetry were stable. The patient was returned to the medicine floor with instructions to ice the injection site as needed for 15-20 minutes, as frequently as twice per hour for the next day. Reviewed By: Arti Pierre MD 09/13/2020 06:16 P Electronically Signed by: Jaron Chapman M.D. 09/14/2020 09:39 A Jaron Chapman M.D. I was present for the entire procedure. Date Dict: 09/13/2020/06:03 P/Arti Pierre MD Date Trans: 09/13/2020 06:03 P/ [id number] cc: Sunil Torre M.D. [facility] [address] [facility] [address] Normal [facility] MRI CERVICAL SPINE W WO CONT RASTon 09-06-2020 MRI CERVICAL SPINE W WO CONTRAST [facility] Department of Radiology [address] [place] [id number] ======== Patient Name: ERIN RITCHIE : 1970 Sex: F Age: Race: White Pt. 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 follow up exam. Syrinx. QUESTION FOR THE RADIOLOGIST: evaluate PROTOCOL: The following pulse sequences were utilized when imaging the cervical spine: sagittal T2, sagittal T1, sagittal STIR, axial T2, and axial T1. Post contrast images obtained in sagittal T1, sagittal T1 fat-sat, and axial T1. CONTRAST: Contrast: DOTAREM .5mmol, 15 milliliter, Intravenous COMPARISON: MRI cervical spine March 14, 2020 FINDINGS: Stable appearance of a multi lobulated syrinx throughout the cervical cord extending into the upper thoracic cord.. Stable appearance of mass effect Rim enhancement within the lesion is similar prior study. No new mass or new enhancement. Mild multilevel disc bulging but no stenosis. Appropriate signal within the vertebral bodies. Stable appearance of multilevel laminectomy. IMPRESSION: 1. Stable syrinx throughout the cervical and upper thoracic cord. Electronically signed: Davian Cross. Transcribed by: [email or web address], User Resident: Electronically Signed by: DAVIAN CROSS @ 09/06/2020 09:55 PM Normal [facility] Comment on above: Order Comment: evalu ate MRI LUMBAR SPINE W WO CONTRA STon 09-06-2020 MRI LUMBAR SPINE W WO CONTRAST [facility] Department of Radiology [address] [place] [id number] ======== Patient Name: ERIN RITCHIE : 1970 Sex: F Age: Race: White Pt. 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 follow up exam. QUESTION FOR THE RADIOLOGIST: evaluate PROTOCOL: The following pulse sequences were utilized when imaging the lumbar spine: sagittal T2, sagittal T1, sagittal STIR, axial T2, and axial T1. Post contrast images obtained in sagittal T1 and axial T1. CONTRAST: Contrast: DOTAREM .5mmol, 15 milliliter, Intravenous COMPARISON: 03/06/2020 FINDINGS: Bone marrow signal, vertebral body heights within normal limits. The conus is unremarkable. Multiple nerve root sheath cysts in the sacrum unchanged. No significant central or neural foraminal stenosis throughout the lumbar spine. Subtle mild posterior disc bulge at L4-5 without stenosis unchanged. Contrast, there are no enhancing lesions. IMPRESSION: Essentially negative MRI lumbar spine without and with contrast. No significant change. Electronically signed: Shamika Pino. Transcribed by: [email or web address], User Resident: Electronically Signed by: SHAMIKA PINO @ 09/07/2020 08:26 AM Normal [facility] Comment on above: Order Comment: rebel Valente 12-05-2018 [facility] Telephone (LiveRampN) ERIN RITCHIE ([id number]) 1970 F Date Time Provider Department 12/05/18 ERLINDA STEVEN (RN) DANNY During your visit today, we recorded the following information about you: Erlinda Steven RN, RN 12/05/2018 9:43 AM Signed Called and spoke with Ms. Ritchie regarding Spine Tumor Board results. Discussed results of Tumor Board per Dr. Rodriguez instructions. Patient verbalizes understanding and states she has completed 2 fx [address] far [address] Cardona. Denies further questions or concerns. Advised Ms. Ritchie to call back if any additional questions. Contact information provided. Erlinda Steven RN Allergies As of Date: 12/05/2018 Noted Allergy Reaction AMOXICILLIN 11/19/2018 2 - Rash BACTRIM (SULFAMETHOXAZOLE-TRIM ETH*11/19/2018 2 - Rash CELEXA (CITALOPRAM) 11/19/2018 16 - Unknown MEDROL (METHYLPREDNISOLONE) 11/19/2018 2 - Rash MINOCIN (MINOCYCLINE) 11/19/2018 14 - Other: See Comments Comments: Lightheaded Date Reviewed: Never Reviewed Reason for Visit: Patient Update [1234] Reason For Visit History Recorded Prescriptions as of 12/05/2018 Sig: ONE-A-DAY ESSENTIAL ORAL Take by mouth. IBUPROFEN 800 MG TABLET Take 800 mg by mouth as neede* SPIRONOLACTONE 100 MG TABLET Take 100 mg by mouth once deanna* LINACLOTIDE 72 MCG CAPSULE Take 1 capsule by mouth once * ALPRAZOLAM 0.5 MG TABLET Take 0.5 mg by mouth as neede* GABAPENTIN 300 MG CAPSULE Take 1 capsule by mouth three* Problem List As Of Date: 12/05/2018 (None) Encounter Status:Closed by ERLINDA STEVEN on 12/05/18 [facility] SURGICAL PATHOLOGYon 019 SURGICAL PATHOLOGY Specimen #: [id number]* Submitting Physician: ISIS RODRIGUEZ M.D. ([id number]) FINAL DIAGNOSIS C4-C6 intramedullary spinal cord, excision ([id number]: 10/21/2018: [facility]) - Ependymoma, WHO Grade II. RAP/rw 11/26/2018 SYNOPTIC REPORT OF [facility]RIAS PATHOLOGIC FINDINGS 5 SLIDES ([id number]): Specimen Type/Procedure: Resection Specimen Handling: Frozen section Unfrozen for routine permanent paraffin sections Primary Tumor Site: Spinal cord Spinal cord: C4-C6 intramedullary region Laterality: Not specified Histologic Type: Ependymoma Histologic Grade: II Ancillary Studies: None Master Hodges M.D. (Electronic Signature) _ SPECIMEN SUBMITTED A: 5 SLIDES ([id number]) CLINICAL DATA None provided. Date of Report: 11/26/2018 Date of Procedure: 11/24/2018 Date of Receipt: 11/25/2018 Submitted by: ISIS RODRIGUEZ M.D. ([id number]) [facility] Diagnostic interpretation performed at [facility], [address] [place] [id number]. CLIA Number: [id number] Normal [facility] CNOVon 11-19-2018 CNOV Office Visit (RADN ) ERIN RITCHIE ([id number]) 1970 F Date Time Provider Department 11/19/18 2:00 PM ISIS RODRIGUEZ During your visit today, we recorded the following information about you: Temperature Pulse Respiration Blood pressure 97 degrees 112/minute 16/minute 124/81 Weight 68.2 kg Isis Rodriguez MD 11/21/2018 9:05 PM Signed Radiation Oncology - New Patient/Consult Note PATIENT NAME: Erin Ritchie PATIENT REQUESTING PROVIDER: Dr. Margarita Cardona. 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 HPI: The patient is a 48 year old female who presents with above diagnosis, for an opinion regarding the role of radiation therapy in the management of the patient's disease. Final recommendations will be communicated back to the requesting physician by way of the shared medical record, or letter to requesting physician via [place] mail. Ms. Ritchie has been having progressive numbness and clumsiness of unknown etiology. MRI of the spine revealed C5 disease with extensive syrinx. Per patient, there is know diffuse disease of the thoracic and lumbar spine. She underwent resection of C5 lesion by Dr. Lisandro Flores. Pathology was c/w ependyomoma. While her left side had improved post resection, her right side progressed symptomatically post resection. She is doing reasonably well post resection. She saw Dr. Cardona who recommended focal RT to areas of known disease. She is seeing me for a second opinion. At time of consult, MRI of the brain and cervical spine imaging were available for review. Pathology report and Dr. Cardona's note were also available. MRI report and imaging of the thoracic and lumbar spine were missing. ALLERGIES Allergen Reactions - Amoxicillin Rash - Bactrim [Sulfametho* Rash - Celexa [Citalopram] Unknown - Medrol [Methylpredn* Rash - Minocin [Minocyclin* Other: See Comments Lightheaded MEDICATIONS: multivitamin (ONE-A-DAY ESSENTIAL ORAL) Take by mouth. ibuprofen (IBU) 800 mg tablet Take 800 mg by mouth as needed. spironolactone (ALDACTONE) 100 mg tablet Take 100 mg by mouth once daily. linaclotide (LINZESS) 72 mcg capsule Take 1 capsule by mouth once daily. Administer on an empty stomach. Swallow whole; DO NOT crush or chew. ALPRAZolam (XANAX) 0.5 mg tablet Take 0.5 mg by mouth as needed (BID PRN). No past medical history on file. Prior radiation therapy, collagen vascular disease, or inflammatory bowel disease: No status: Post-menopausal. No past surgical history on file. No family history on file. SOCIAL HISTORY: Marital Status: boyfriend, live together Children: 2 (28 son, 21 son), 1 grandchild Occupation: [employer] Working: Short term disability since Jul.25. Tobacco Use:No longer, quit 15 years ago, on and off for a total of 4 years. Alcohol Use:No Lives in [place], [place] COMPLETE REVIEW OF SYSTEMS: GENERAL: Negative for weight loss, fevers, chills, or night sweats. RESPIRATORY: Negative for cough or shortness of breath. CARDIAC: Negative for chest pain, palpitations, murmurs, or syncopal episodes. GI: Negative, except for constipation managed with medication. Occasional blood in stool r/t hemroids and diverticulitis. : Negative for dysuria, hematuria, urgency, frequency or incontinence. MUSCULOSKELETAL: Negative for limitations in movement, pain, or swelling. HEMATOLOGIC: Negative for bleeding or easy bruising. SKIN: itchiness to abdomen, denies rash. Neuro detailed: Headache: No Pain: Mid back, 8/10 at worst, 3 -04/10 with medication, tight, worse at night when sleeping. Pain interventions: Motrin 800, Tylenol, none required Fatigue: mild Decreased visual acuity: No Diplopia: No Visual Field Changes: No Tinnitus: No Hearing loss: none Dysphagia: No Decreased balance: mild Arm/leg numbness: Yes Focal weakness: No Limb discoordination: No Disorientation: none Decreased concentration: none Memory changes: none Word finding difficulty: none Dysarthria: none Seizures: No ROS completed by Erlinda Steven RN PHYSICAL EXAM: VS: BP 124/81 Pulse 112 Temp 36.1 ?C (97 ?F) (Oral) Resp 16 Wt 68.2 kg (150 lb 4.8 oz) SpO2 100% KPS: 70 Neuro function score (NFS): NFS 2 (Moderate neurologic symptoms; fully active at home/work but requires assistance) General Appearance: Alert and oriented. No acute distress. Neck: Normal ROM. Chest: No respiratory distress. Musculoskeletal: No edema. Normal ROM in extremities. Neuro: Speech fluent. CN II-XII grossly intact. Bilateral ataxia RADIOLOGY/LABORATORY DATA: Imaging in [facility] ASSESSMENT AND PLAN: 48 yo with ependymoma involving the cervical spinal cord s/p resection with seeding in the thoracic and lumbar spinal cord/cauda. Will obtain MRI of the thoracic and lumbar spine to confirm extent of disease. Pathology report defines tumor as an ependymoma. No grade was included in the pathology report, but presumably this is a Grade II ependymoma. Will obtain pathology for review here. I agree with Dr. Cardona's recommendation for focal RT to areas of involvement. Although CSI would be comprehensive and could minimize risk of distant recurrence, given the side effect profile and potential longevity of the patient, I do not favor CSI. I did discuss proton therapy should she wish to proceed with CSI. I also discussed short interval observation given that this may be slowly progressive. R/B/A/P of RT were discussed. I agree with recommendation for LP at this time for cytology. Will obtain remaining imaging and pathology slide with plan for review at Tumor Board. Signed by: Isis Rodriguez MD cc: Sunil Torre MD [address] [place] [phone] [address] Lorrie Cardona [facility] [address] [place] [address] Dr. Lisandro Flores [facility] [place] [address] Referring Provider: ANAHY JOSEPH [[id number]] Allergies As of Date: 11/19/2018 Noted Allergy Reaction AMOXICILLIN 11/19/2018 2 - Rash BACTRIM (SULFAMETHOXAZOLE-TRIM ETH*11/19/2018 2 - Rash CELEXA (CITALOPRAM) 11/19/2018 16 - Unknown MEDROL (METHYLPREDNISOLONE) 11/19/2018 2 - Rash MINOCIN (MINOCYCLINE) 11/19/2018 14 - Other: See Comments Comments: Lightheaded Date Reviewed: Never Reviewed Reason for Visit: Consult [502] Primary Visit Diagnosis:Ependymoma (HCC) [C71.9] Order(s):gabapentin (NEURONTIN) 300 mg capsuleTake 1 capsule by mouth three times daily for 90 days.Disp: 90 capsuleRfl: 2 Prescriptions as of 11/19/2018 Sig: ONE-A-DAY ESSENTIAL ORAL Take by mouth. IBUPROFEN 800 MG TABLET Take 800 mg by mouth as neede* SPIRONOLACTONE 100 MG TABLET Take 100 mg by mouth once deanna* LINACLOTIDE 72 MCG CAPSULE Take 1 capsule by mouth once * ALPRAZOLAM 0.5 MG TABLET Take 0.5 mg by mouth as neede* GABAPENTIN 300 MG CAPSULE Take 1 capsule by mouth three* Problem List As Of Date: 11/19/2018 (None) Prescriptions ordered this encounter Disp Refills Start End GABAPENTIN 300 MG CAPSULE 90 c* 2 11/19/2018 02/17/2019 Route: ORAL Sig: Take 1 capsule by mouth three times daily for 90 days. Encounter Status:Closed by ISIS RODRIGUEZ MD on 11/21/18 [facility] PROGRESSon 11-19-2018 Protein mass conc HNO ID: [id number] Author: Isis Rodriguez Service: ? Author Type: Physician Type: Progress Notes Filed: 11/21/2018 9:05 PM Note Text: Radiation Oncology - New Patient/Consult Note PATIENT NAME: Erin Ritchie PATIENT REQUESTING PROVIDER: Dr. Margarita Cardona. 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 HPI: The patient is a 48 year old female who presents with above diagnosis, for an opinion regarding the role of radiation therapy in the management of the patient's disease. Final recommendations will be communicated back to the requesting physician by way of the shared medical record, or letter to requesting physician via US mail. Ms. Ritchie has been having progressive numbness and clumsiness of unknown etiology. MRI of the spine revealed C5 disease with extensive syrinx. Per patient, there is know diffuse disease of the thoracic and lumbar spine. She underwent resection of C5 lesion by Dr. Lisandro Flores. Pathology was c/w ependyomoma. While her left side had improved post resection, her right side progressed symptomatically post resection. She is doing reasonably well post resection. She saw Dr. Cardona who recommended focal RT to areas of known disease. She is seeing me for a second opinion. At time of consult, MRI of the brain and cervical spine imaging were available for review. Pathology report and Dr. Cardona's note were also available. MRI report and imaging of the thoracic and lumbar spine were missing. ALLERGIES Allergen Reactions - Amoxicillin Rash - Bactrim [Sulfametho* Rash - Celexa [Citalopram] Unknown - Medrol [Methylpredn* Rash - Minocin [Minocyclin* Other: See Comments Lightheaded MEDICATIONS: multivitamin (ONE-A-DAY ESSENTIAL ORAL) Take by mouth. ibuprofen (IBU) 800 mg tablet Take 800 mg by mouth as needed. spironolactone (ALDACTONE) 100 mg tablet Take 100 mg by mouth once daily. linaclotide (LINZESS) 72 mcg capsule Take 1 capsule by mouth once daily. Administer on an empty stomach. Swallow whole; DO NOT crush or chew. ALPRAZolam (XANAX) 0.5 mg tablet Take 0.5 mg by mouth as needed (BID PRN). No past medical history on file. Prior radiation therapy, collagen vascular disease, or inflammatory bowel disease: No status: Post-menopausal. No past surgical history on file. No family history on file. SOCIAL HISTORY: Marital Status: boyfriend, live together Children: 2 (28 son, 21 son), 1 grandchild Occupation: [employer] Working: Short term disability since Jul.25. Tobacco Use:No longer, quit 15 years ago, on and off for a total of 4 years. Alcohol Use:No Lives in [place], [place] COMPLETE REVIEW OF SYSTEMS: GENERAL: Negative for weight loss, fevers, chills, or night sweats. RESPIRATORY: Negative for cough or shortness of breath. CARDIAC: Negative for chest pain, palpitations, murmurs, or syncopal episodes. GI: Negative, except for constipation managed with medication. Occasional blood in stool r/t hemroids and diverticulitis. : Negative for dysuria, hematuria, urgency, frequency or incontinence. MUSCULOSKELETAL: Negative for limitations in movement, pain, or swelling. HEMATOLOGIC: Negative for bleeding or easy bruising. SKIN: itchiness to abdomen, denies rash. Neuro detailed: Headache: No Pain: Mid back, 8/10 at worst, 3 -04/10 with medication, tight, worse at night when sleeping. Pain interventions: Motrin 800, Tylenol, none required Fatigue: mild Decreased visual acuity: No Diplopia: No Visual Field Changes: No Tinnitus: No Hearing loss: none Dysphagia: No Decreased balance: mild Arm/leg numbness: Yes Focal weakness: No Limb discoordination: No Disorientation: none Decreased concentration: none Memory changes: none Word finding difficulty: none Dysarthria: none Seizures: No ROS completed by Erlinda Steven RN PHYSICAL EXAM: VS: BP 124/81 Pulse 112 Temp 36.1 ?C (97 ?F) (Oral) Resp 16 Wt 68.2 kg (150 lb 4.8 oz) SpO2 100% KPS: 70 Neuro function score (NFS): NFS 2 (Moderate neurologic symptoms; fully active at home/work but requires assistance) General Appearance: Alert and oriented. No acute distress. Neck: Normal ROM. Chest: No respiratory distress. Musculoskeletal: No edema. Normal ROM in extremities. Neuro: Speech fluent. CN II-XII grossly intact. Bilateral ataxia RADIOLOGY/LABORATORY DATA: Imaging in [facility] ASSESSMENT AND PLAN: 48 yo with ependymoma involving the cervical spinal cord s/p resection with seeding in the thoracic and lumbar spinal cord/cauda. Will obtain MRI of the thoracic and lumbar spine to confirm extent of disease. Pathology report defines tumor as an ependymoma. No grade was included in the pathology report, but presumably this is a Grade II ependymoma. Will obtain pathology for review here. I agree with Dr. Cardona's recommendation for focal RT to areas of involvement. Although CSI would be comprehensive and could minimize risk of distant recurrence, given the side effect profile and potential longevity of the patient, I do not favor CSI. I did discuss proton therapy should she wish to proceed with CSI. I also discussed short interval observation given that this may be slowly progressive. R/B/A/P of RT were discussed. I agree with recommendation for LP at this time for cytology. Will obtain remaining imaging and pathology slide with plan for review at Tumor Board. Signed by: Isis Rodriguez MD cc: Sunil Torre MD [address] [phone] [address] Lorrie Cardona [address] [address] [address] Lisandro Flores [address] [place] [address] Normal [facility] MR-MRI CERVICAL SPINE W WO C ONTRAST IMPORTon 10-23-2018 MR-MRI CERVICAL SPINE W WO CONTRAST IMPORT Images were obtained outside of [facility] [id number] Normal [facility] RF-CERVICAL SPINE 2 OR 3 VWS IMPORTon 10-21-2018 RF-CERVICAL SPINE 2 OR 3 VWS IMPORT Images were obtained outside of [facility] [id number] Normal [facility] MR-MRI BRAIN W WO CONTRAST I MPORTon 10-13-2018 MR-MRI BRAIN W WO CONTRAST IMPORT Images were obtained outside of [facility] [id number] Normal [facility] MR-e+1 MRI CERVICAL SPINE W WO CONTRAST IMPORTon 10-13-2018 MR-e+1 MRI CERVICAL SPINE W WO CONTRAST IMPORT Images were obtained outside of [facility] [id number] Normal [facility] MR-MR thoracic spine wo/w co n IMPORTon 09-18-2018 MR-MR thoracic spine wo/w con IMPORT Images were obtained outside of [facility] [id number] Normal [facility] MR-MR lumbar spine wo/w con IMPORTon 09-09-2018 MR-MR lumbar spine wo/w con IMPORT Images were obtained outside of [facility] [id number] Normal [facility] MR-MR lumbar spine wo/w con IMPORT Images were obtained outside of [facility] [id number] Normal [facility] Vital Signs Date Time Vital Sign Value Performing Clinician Facility 02-10-2024 12:57-0400 Body height 172.72 cm DO Sunil Torre Work Phone: [facility] 02-10-2024 12:57-0400 Body mass index (BMI) [Ratio] 20.9 kg/m2 DO Sunil Torre Work Phone: [facility] 02-10-2024 12:57-0400 Body weight 62.59 kg DO Sunil Torre Work Phone: [facility] 02-10-2024 12:57-0400 Diastolic blood pressure 80 mm[Hg] DO Sunil Torre Work Phone: [facility] 02-10-2024 12:57-0400 Heart rate 62 /min DO Sunil Torre Work Phone: [facility] 02-10-2024 12:57-0400 Respiratory rate 16 /min DO Sunil Torre Work Phone: [facility] 02-10-2024 12:57-0400 SaO2% (BldA) [Mass fraction] 97 % DO Sunil Torre Work Phone: [facility] 02-10-2024 12:57-0400 Systolic blood pressure 122 mm[Hg] DO Sunil Torre Work Phone: [facility] 01-16-2024 13:37-0400 Blood Pressure Location Helene Gale[facility] 01-16-2024 13:37-0400 Body temperature 98.6 [degF] Helene Gale[facility] 01-16-2024 13:37-0400 Diastolic blood pressure 87 mm[Hg] Helene Gale[facility] 01-16-2024 13:37-0400 Heart rate 78 /min Helene Galea [facility] 01-16-2024 13:37-0400 Respiratory rate 18 /min Helene Galea [facility] 01-16-2024 13:37-0400 Systolic blood pressure 131 mm[Hg] Helene Galea [facility] 12-16-2023 10:56-0400 Body height 172.72 cm DO Sunil Torre Work Phone: [facility] 12-16-2023 10:56-0400 Body weight 60.32 kg DO Sunilshahram Torre Work Phone: [facility] 11-18-2023 07:19-0400 Body height 172.72 cm DO Sunil Torre Work Phone: [facility] 11-18-2023 07:19-0400 Body weight 60.32 kg DO Sunil Torre Work Phone: [facility] 11-17-2023 11:15-0400 Body height 172.72 cm [facility] 11-17-2023 11:15-0400 Body mass index (BMI) [Ratio] 20.9 kg/m2 [facility] 11-17-2023 11:15-0400 Body temperature 97.9 [degF] [facility] 11-17-2023 11:15-0400 Body weight 62.59 kg [facility] 11-17-2023 11:15-0400 Heart rate 93 /min [facility] 11-17-2023 11:15-0400 SaO2% (BldA) [Mass fraction] 96 % [facility] 06-28-2023 12:05-0500 Body height 172.72 cm [place] Other [facility] 06-28-2023 12:05-0500 Body mass index (BMI) [Ratio] 21.74 kg/m2 [place] [place] Other [employer] [facility] [employer] Other 06-28-2023 12:05-0500 Body temperature 97.9 [degF] [place] Other [employer] [facility] [employer] Other 06-28-2023 12:05-0500 Body weight 64.86 kg [place] Other [facility] 06-28-2023 12:05-0500 Diastolic blood pressure 78 mm[Hg] [place] Other [facility] 06-28-2023 12:05-0500 Respiratory rate 16 /min [place] Other [employer] Other 06-28-2023 12:05-0500 SaO2% (BldA) [Mass fraction] 97 % [place] Other [employer] [facility] [employer] Other 06-28-2023 12:05-0500 Systolic blood pressure 119 mm[Hg] [place] Other [facility] 05-27-2023 12:30-0500 Body height 172.72 cm DO Sunil Austins Work Phone: [facility] 05-27-2023 12:30-0500 Body weight 63.95 kg DO Sunil Kuns Work Phone: [facility] 05-27-2023 12:30-0500 Diastolic blood pressure 62 mm[Hg] DO Sunil Kuns Work Phone: [facility] 05-27-2023 12:30-0500 Systolic blood pressure 126 mm[Hg] DO Sunil Kuns Work Phone: [facility] 09-25-2022 13:30-0400 Body height 172.72 cm Sunilshahram Avilas Other [employer] Other 09-25-2022 13:30-0400 Body mass index (BMI) [Ratio] 23.41 kg/m2 Sunilshahram Avilas Other [employer] Other 09-25-2022 13:30-0400 Body weight 69.85 kg Sunil Avilas Other [employer] Other 09-25-2022 13:30-0400 Diastolic blood pressure 76 mm[Hg] Sunil Torre Other [employer] Other 09-25-2022 13:30-0400 Respiratory rate 16 /min Sunil Torre Other [employer] Other 09-25-2022 13:30-0400 SaO2% (BldA) [Mass fraction] 98 % Sunil Torre Other [employer] Other 09-25-2022 13:30-0400 Systolic blood pressure 118 mm[Hg] Sunil Torre Other [employer] Other 07-24-2022 13:30-0500 Body height 172.72 cm Sunil Torre Other [employer] Other 07-24-2022 13:30-0500 Body mass index (BMI) [Ratio] 23.87 kg/m2 Sunil Torre Other [employer] Other 07-24-2022 13:30-0500 Body weight 71.22 kg Sunil Torre Other [employer] Other 07-24-2022 13:30-0500 Diastolic blood pressure 75 mm[Hg] Sunil Torre Other [employer] Other 07-24-2022 13:30-0500 Respiratory rate 16 /min Sunil Torre Other [employer] Other 07-24-2022 13:30-0500 SaO2% (BldA) [Mass fraction] 98 % Sunil Torre Other [employer] Other 07-24-2022 13:30-0500 Systolic blood pressure 115 mm[Hg] Sunil Torre Other [employer] Other 04-03-2022 13:30-0400 Body height 172.72 cm Sunil Torre Other [employer] Other 04-03-2022 13:30-0400 Body mass index (BMI) [Ratio] 24.02 kg/m2 Sunil Torre Other [employer] Other 04-03-2022 13:30-0400 Body weight 71.67 kg Sunil Torre Other [employer] Other 04-03-2022 13:30-0400 Diastolic blood pressure 70 mm[Hg] Sunil Torre Other [employer] Other 04-03-2022 13:30-0400 Respiratory rate 18 /min Sunil Torre Other [employer] Other 04-03-2022 13:30-0400 SaO2% (BldA) [Mass fraction] 96 % Sunil Torre Other [employer] Other 04-03-2022 13:30-0400 Systolic blood pressure 110 mm[Hg] Sunil Torre Other [employer] Other 09-27-2021 11:30-0400 Body height 172.72 cm Sunil Torre Other [employer] Other 09-27-2021 11:30-0400 Body mass index (BMI) [Ratio] 24.36 kg/m2 Sunil Torre Other [employer] Other 09-27-2021 11:30-0400 Body weight 72.67 kg Sunil Torre Other [employer] Other 09-27-2021 11:30-0400 Diastolic blood pressure 70 mm[Hg] Sunil Nicho Other [employer] Other 09-27-2021 11:30-0400 Respiratory rate 18 /min Sunil Nicho Other [employer] Other 09-27-2021 11:30-0400 SaO2% (BldA) [Mass fraction] 99 % Sunilshahram Avilasilvano Other [employer] Other 09-27-2021 11:30-0400 Systolic blood pressure 108 mm[Hg] Sunil Nicho Other [employer] Other 06-21-2021 09:30-0500 Body height 172.72 cm Sunil Avilasilvano Other [employer] Other 06-21-2021 09:30-0500 Body mass index (BMI) [Ratio] 24.39 kg/m2 Sunil Nicho Other [employer] Other 06-21-2021 09:30-0500 Body weight 72.76 kg Sunil Nicho Other [employer] Other 06-21-2021 09:30-0500 Diastolic blood pressure 78 mm[Hg] Sunil Avilas Other [employer] Other 06-21-2021 09:30-0500 Respiratory rate 18 /min Sunil Torre Other [employer] Other 06-21-2021 09:30-0500 SaO2% (BldA) [Mass fraction] 98 % Sunil Torre Other [employer] Other 06-21-2021 09:30-0500 Systolic blood pressure 110 mm[Hg] Sunil Torre Other [employer] Other 05-26-2021 13:15-0500 Body height 172.72 cm Maria Ines Rodriguez Other [employer] Other 05-26-2021 13:15-0500 Body temperature 97 [degF] Maria Ines Rodriguez Other [employer] Other 05-26-2021 13:15-0500 Respiratory rate 18 /min Maria Ines Rodriguez Other [employer] Other 05-26-2021 13:15-0500 SaO2% (BldA) [Mass fraction] 99 % Maria Ines Rodriguez Other [employer] Other 04-25-2021 14:45-0500 Body height 172.72 cm Sunil Torre Other [employer] Other 04-25-2021 14:45-0500 Body mass index (BMI) [Ratio] 24.48 kg/m2 Sunil Avilasilvano Other [employer] Other 04-25-2021 14:45-0500 Body weight 73.03 kg Sunil Avilasilvano Other [employer] Other 04-25-2021 14:45-0500 Diastolic blood pressure 80 mm[Hg] Sunil Torre Other [employer] Other 04-25-2021 14:45-0500 Respiratory rate 16 /min Sunil Torre Other [employer] Other 04-25-2021 14:45-0500 SaO2% (BldA) [Mass fraction] 98 % Sunil Torre Other [employer] Other 04-25-2021 14:45-0500 Systolic blood pressure 112 mm[Hg] Sunil Torre Other [employer] Other Encounters Encounter Date Encounter Type Care Provider Facility Start: 02-27-2024 End: 02-27-2024 ambulatory DO Sunil Torre Work Phone: [facility] Work Phone: Start: 02-27-2024 End: 02-27-2024 Departed Referred DO Sunil Torre Work Phone: [facility] [place] Work Phone: Start: 02-27-2024 End: 02-27-2024 ambulatory Estephania Matthews Facility:[facility] Start: 02-11-2024 End: 02-11-2024 Patient encounter procedure DO Sunil Torre Work Phone: [facility] [place] Work Phone: Start: 02-11-2024 End: 02-11-2024 ambulatory DO Sunil Torre Work Phone: [facility] Work Phone: Start: 02-10-2024 End: 02-10-2024 ambulatory DO Sunil Torre Work Phone: [facility] Work Phone: Start: 02-10-2024 End: 02-10-2024 Patient encounter procedure DO Sunil Nicho Work Phone: [facility] [place] Work Phone: Start: 01-16-2024 End: 01-16-2024 ambulatory SUNIL TORRE Facility:[facility] Start: 01-16-2024 End: 01-16-2024 Patient encounter procedure Helene Villafana [facility] Start: 01-02-2024 ambulatory Estephania Matthews Facility:[facility] Start: 12-31-2023 End: 12-31-2023 ambulatory [facility] Start: 12-31-2023 End: 12-31-2023 ambulatory [facility] Start: 12-27-2023 End: 12-27-2023 Patient encounter procedure DO Sunil Nicho Work Phone: [facility] [place] Work Phone: Start: 12-27-2023 End: 12-27-2023 ambulatory DO Sunil Nicho Work Phone: [facility] Work Phone: Start: 12-27-2023 End: 12-27-2023 ambulatory DO Sunil Torre Work Phone: [facility] Work Phone: Start: 12-27-2023 End: 12-27-2023 Patient encounter procedure DO Sunil Torre Work Phone: [facility] [place] Work Phone: Start: 12-18-2023 End: 12-18-2023 ambulatory [facility] Start: 12-16-2023 End: 12-16-2023 Patient encounter procedure DO Sunil Torre Work Phone: [facility] [place] Work Phone: Start: 12-16-2023 End: 12-16-2023 ambulatory DO Sunil Torre Work Phone: [facility] Work Phone: Start: 11-20-2023 End: 11-20-2023 ambulatory PENLAURA P ÁNGEL Not Available Start: 11-18-2023 End: 11-18-2023 Patient encounter procedure DO Sunil Torre Work Phone: [facility] [place] Work Phone: Start: 11-18-2023 End: 11-18-2023 ambulatory DO Sunil Torre Work Phone: [facility] Work Phone: Start: 11-17-2023 End: 11-17-[address] [facility] Work Phone: Start: 11-17-2023 End: 11-17-2023 Patient encounter procedure [facility] [place] Work Phone: Start: 10-10-2023 End: 10-10-2023 ambulatory ISRA NEAL Not Available Start: 08-13-2023 End: 08-13-2023 ambulatory Sunil Torre Facility:[facility] Start: 08-02-2023 End: 08-02-2023 ambulatory DO Sunil Nicho Work Phone: [facility] Work Phone: Start: 08-02-2023 End: 08-02-2023 Patient encounter procedure DO Sunil Nicho Work Phone: [facility] [place] Work Phone: Start: 06-28-2023 End: 06-28-2023 ambulatory [place] Other [employer] Other Start: 06-28-2023 Office outpatient vi sit 15 minutes [place] [facility] [place] Start: 06-28-2023 Telephone encounter Sunil Torre [facility] [place] Start: 06-28-2023 End: 06-28-2023 Patient encounter procedure DO Sunil Austinsilvano [facility] Phone[facility] Work Phone: Start: 06-07-2023 End: 06-07-2023 ambulatory Sunil Torre Other [employer] Other Start: 06-07-2023 Telephone encounter Sunil Torre [facility] [place] Start: 06-04-2023 End: 06-04-2023 ambulatory Sunil Torre Other [employer] Other Start: 06-04-2023 Telephone encounter Sunil Torre [facility] [place] Start: 05-31-2023 End: 05-31-2023 Patient encounter procedure DO Sunil Nicho Work Phone: [facility] [place] Work Phone: Start: 05-31-2023 End: 05-31-2023 ambulatory Sunil Torre Facility:[facility] Start: 05-27-2023 End: 05-27-2023 Patient encounter procedure DO Sunil Nicho Work Phone: [facility] [place] Work Phone: Start: 12-10-2022 End: 12-10-2022 ambulatory Sunil Torre Other [employer] Other Start: 12-10-2022 Telephone encounter Sunil Torre [facility] [place] Start: 11-15-2022 End: 11-15-2022 ambulatory DO Sunil Torre Work Phone: [facility] Work Phone: Start: 11-15-2022 End: 11-15-2022 Patient encounter procedure DO Sunilshahram Torre Work Phone: [facility] [place] Work Phone: Start: 10-01-2022 End: 10-01-2022 ambulatory Sunil Avilasilvano Other [employer] Other Start: 10-01-2022 Telephone encounter Sunil Torre [facility] Start: 09-26-2022 End: 09-26-2022 ambulatory DO Sunil Austinsilvano Work Phone: [facility] Work Phone: Start: 09-26-2022 End: 09-26-2022 Patient encounter procedure DO Sunil Torre Work Phone: [facility] [place] Work Phone: Start: 09-25-2022 End: 09-25-2022 ambulatory Sunil Torre Other [employer] Other Start: 09-25-2022 Office outpatient vi sit 25 minutes [facility] Start: 07-24-2022 End: 07-24-2022 ambulatory Sunil Torre Other [employer] Other Start: 07-24-2022 Office outpatient vi sit 25 minutes [facility] Start: 06-20-2022 End: 06-20-2022 ambulatory Sunil Torre Other [employer] Other Start: 06-20-2022 Telephone encounter Sunil Torre [facility] [place] Start: 06-06-2022 End: 06-06-2022 ambulatory Sunil Torre Other [employer] Other Start: 06-06-2022 Telephone encounter [facility] Start: 05-28-2022 End: 05-28-2022 ambulatory DO Sunil Torre Work Phone: [facility] Work Phone: Start: 05-28-2022 End: 05-28-2022 Patient encounter procedure DO Sunil Torre Work Phone: [facility] [place] Start: 04-04-2022 End: 04-04-2022 ambulatory Sunil Torre Other [employer] Other Start: 04-04-2022 Telephone encounter Sunil Torre [facility] [place] Start: 04-03-2022 End: 04-03-2022 ambulatory Sunil Avilasilvano Other [employer] Other Start: 04-03-2022 Office outpatient vi sit 15 minutes Sunil Torre [facility] [place] Start: 02-15-2022 End: 02-15-2022 Patient encounter procedure DO Sunil Torre Work Phone: [facility] [place] Start: 01-03-2022 End: 01-03-2022 ambulatory Sunilshahram Torre Other [employer] Other Start: 01-03-2022 Telephone encounter Sunil Torre [facility] [place] Start: 10-06-2021 End: 10-06-2021 ambulatory Sunil Torre Other [employer] Other Start: 10-06-2021 Telephone encounter Sunil Torre [facility] [place] Start: 10-05-2021 End: 10-06-2021 ambulatory [facility] Facility: Start: 09-27-2021 End: 09-27-2021 ambulatory Sunil Torre Other [employer] Other Start: 09-27-2021 Office outpatient vi sit 25 minutes Sunil Torre [facility] [place] Start: 08-31-2021 End: 09-01-2021 ambulatory PROVIDER UNKNOWN Facility:[facility] Start: 2021 End: 08-31-2021 ambulatory PROVIDER UNKNOWN Facility:[facility] Start: 08-02-2021 End: 08-02-2021 ambulatory Sunil Avilasilvano Other [employer] Other Start: 08-02-2021 Telephone encounter Sunil Torre [facility] [place] Start: 06-29-2021 End: 06-29-2021 ambulatory Sunil Torre Other [employer] Other Start: 06-29-2021 Telephone encounter Sunil Torre [facility] [place] Start: 06-22-2021 End: 06-22-2021 ambulatory Sunil Torre Other [employer] Other Start: 06-22-2021 Telephone encounter Sunil Torre [facility] [place] Start: 06-21-2021 End: 06-21-2021 ambulatory Sunil Torre Other [employer] Other Start: 06-21-2021 Encounter for genera l adult medical examination without abnormal findings Sunil Torre [facility] [place] Start: 06-21-2021 Periodic preventive med est patient 40-64yrs Sunil Torre [facility] [place] Start: 06-01-2021 End: 06-01-2021 ambulatory Sunil Torre Other [employer] Other Start: 06-01-2021 Telephone encounter Sunil Torre [facility] [place] Start: 05-26-2021 (URG) Urgent Care Visit Maria Ines kumar [facility] [place] Start: 05-26-2021 End: 05-26-2021 ambulatory Maria Ines Rodriguez Other [employer] Other Start: 05-26-2021 Telephone encounter Sunil Torre [facility] Start: 05-08-2021 End: 05-08-2021 ambulatory [place] Ginty Other [employer] Other Start: 05-08-2021 Office outpatient vi sit 5 minutes [place] Ginty [facility] [place] Start: 05-04-2021 End: 05-04-2021 ambulatory Sunil Torre Other [employer] Other Start: 05-04-2021 Telephone encounter Sunilshahram Torre [facility] [place] Start: 04-25-2021 End: 04-25-2021 ambulatory Sunilshahram Torre Other [employer] Other Start: 04-25-2021 Office outpatient vi sit 25 minutes Sunil Nicho [facility] [place] Start: 09-06-2020 End: 09-07-2020 ambulatory SUNILSHAHRAM TORRE Facility:[facility] Procedures Date Procedure Procedure Detail Performing Clinician Start: 12-27-2023 Urine culture DO Sunil Torre Work Phone: Start: 12-18-2023 Follow-up visit Follow-up LISANDRO FLORES Start: 12-16-2023 MRI of thoracic spine with contrast DO B ravi Austins Work Phone: Start: 11-18-2023 XR pre/post mri xray DO Sunil Avilas Work Phone: Start: 11-18-2023 MRI of cervical spine with contrast DO B ravi Kuns Work Phone: Start: 11-18-2023 MRI of lumbar spine with contrast DO Silvestre shahram Avilas Work Phone: Start: 11-17-2023 Quick Strep (POC) Start: 09-26-2022 Plain x-ray of pelvis and lower extremity DO Sunilshahram Avilas Work Phone: Start: 02-15-2022 MRI of lumbar spine with contrast DO Silvestre an Kuns Work Phone: Start: 02-15-2022 MRI of thoracic spine with contrast DO Marcello Torre Work Phone: section Helene Gay a Cholecystectomy Helene Galdakotah Colonoscopy Helene Galea Esophagogastroduodenoscopy Bertin Villafana Plan of Treatment Date Care Activity Detail Author Start: 03-18-2024 ambulatory Ambulatory Facility:[facility] Start: 02-11-2024 Estradiol (E2) [Mass/volume] in Serum or Plasma [facility] Start: 02-11-2024 Estrogen [Mass/volum e] in Serum or Plasma [facility] Start: 12-27-2023 Bacteria identified in Urine by Culture [facility] Start: 08-02-2023 Bacteria identified in Urine by Culture [facility] Start: 11-15-2022 MR Cervical spine WO and W contrast IV [facility] Start: 11-15-2022 MRI of cervical spin e with contrast MR cervical spine wo/w con [facility] Start: 05-28-2022 MR Cervical spine WO and W contrast IV [facility] Start: 05-28-2022 MRI of cervical spin e with contrast MR cervical spine wo/w con [facility] DXA Skeletal system.axial Views for bone density [facility] Estradiol (E2) [Mass/volume] in Serum or Plasma [facility] Estrogen [Mass/volum e] in Serum or Plasma [facility] Immunizations Immunization Date Immunization Notes Care Provider Fa cili 05-31-2022 influenza, injectable, quadrivalent, preservative free DO Sunil Torre Work Phone: [facility] 05-31-2022 influenza, seasonal, injectable Sunil Torre Other [facility] 02-23-2021 COVID-19 Vaccine Pfizer - Documentation Purposes Only Sunil Torre Other [facility] 02-02-2021 COVID-19 Vaccine Pfizer - Documentation Purposes Only Sunil Torre Other [facility] NEGATED: Highlighted row has not occurred!08-15-2018 influenza, seasonal, injectable Patient Objection Sunil Torre Other [facility] Payers Date Payer Category Payer Self-pay [id number] 1970 Unknown [id number] 2.16.8 [id number] 1970 Unknown [id number] 2.16.8 [id number] 1970 Unknown [id number] 2.16.8 [id number] 1970 Unknown [id number] 2.16.84 [id number] 1970 Unknown [id number] 2.16.84 [id number] 1970 Unknown [id number] 2.16.84 [id number] 1970 Unknown [id number] 2.16.8 [id number] 1970 Unknown [id number] 2.16.8 40.1.201580.3.579.2.727 1970 Unknown [id number] 2.16.8 [id number] 1959 Private Health Insurance [id number] Private Health Insurance [id number] Unknown [id number] 2.16.8 40.1.316638.3.579.2.531 Unknown [id number] 2.16.8 40.1.421010.3.579.2.531 Unknown [id number] 2.16.8 40.1.140654.3.579.2.531 Unknown [id number] 2.16.8 40.1.886030.3.579.2.531 Unknown [id number] 2.16.8 40.1.004100.3.579.2.531 Unknown [id number] 2.16.8 40.1.046357.3.579.2.531 Unknown [id number] 2.16.8 40.1.010610.3.579.2.531 Unknown [id number] 2.16.8 [id number] Social History Date Type Detail Facility Unknown if ever smoked [employer] Other Sex Assigned At [facility] Start: 08-01-2020 End: 11-17-2023 Tobacco smoking status NHIS Ex-smoker (finding) [facility] Start: 1970 Sex Assigned At Female [facility] Tobacco smoking status Never [facility] Functional Status Date Assessment Result Facility 01-16-2024 Functional Status N/A [facility] Clinical Notes 01-01-2011 to 01-16-2024 Note Date & Type Note Facility 01-16-2024 Hospital Discharg e instructions Patient Education 01/16/2024 14:38:11 Urinary Tract Infection, Adult Urinary Tract Infection, Adult A urinary tract infection (UTI) is an infection of any part of the urinary tract. The urinary tract includes the kidneys, ureters, bladder, and urethra. These organs make, store, and get rid of urine in the body. An upper UTI affects the ureters and kidneys. A lower UTI affects the bladder and urethra. What are the causes? Most urinary tract infections are caused by bacteria in your genital area around your urethra, where urine leaves your body. These bacteria grow and cause inflammation of your urinary tract. What increases the risk? You are more likely to develop this condition if: You have a urinary catheter that stays in place. You are not able to control when you urinate or have a bowel movement (incontinence). You are female and you: ?Use a spermicide or diaphragm for control. ?Have low estrogen levels. ?Are . You have certain genes that increase your risk. You are sexually active. You take antibiotic medicines. You have a condition that causes your flow of urine to slow down, such as: ?An enlarged prostate, if you are male. ?Blockage in your urethra. ?A kidney stone. ?A nerve condition that affects your bladder control (neurogenic bladder). ?Not getting enough to drink, or not urinating often. You have certain medical conditions, such as: ?Diabetes. ?A weak disease-fighting system (immunesystem). ?Sickle cell disease. ?Gout. ?Spinal cord injury. What are the signs or symptoms? Symptoms of this condition include: Needing to urinate right away (urgency). Frequent urination. This may include small amounts of urine each time you urinate. Pain or burning with urination. Blood in the urine. Urine that smells bad or unusual. Trouble urinating. Cloudy urine. Vaginal discharge, if you are female. Pain in the abdomen or the lower back. You may also have: Vomiting or a decreased appetite. Confusion. Irritability or tiredness. A fever or chills. Diarrhea. The first symptom in older adults may be confusion. In some cases, they may not have any symptoms until the infection has worsened. How is this diagnosed? This condition is diagnosed based on your medical history and a physical exam. You may also have other tests, including: Urine tests. Blood tests. Tests for STIs (sexually transmitted infections). If you have had more than one UTI, a cystoscopy or imaging studies may be done to determine the cause of the infections. How is this treated? Treatment for this condition includes: Antibiotic medicine. Qezu-mge-nhbtvwv medicines to treat discomfort. Drinking enough water to stay hydrated. If you have frequent infections or have other conditions such as a kidney stone, you may need to see a health care provider who specializes in the urinary tract (urologist). In rare cases, urinary tract infections can cause sepsis. Sepsis is a life-threatening condition that occurs when the body responds to an infection. Sepsis is treated in the hospital with IV antibiotics, fluids, and other medicines. Follow these instructions at home: Medicines Take [id number] and prescription medicines only as told by your health care provider. If you were prescribed an antibiotic medicine, take it as told by your health care provider. Do not stop using the antibiotic even if you start to feel better. General instructions Make sure you: ?Empty your bladder often and completely. Do not hold urine for long periods of time. ?Empty your bladder after sex. ?Wipe from front to back after urinating or having a bowel movement if you are female. Use each tissue only one time when you wipe. Drink enough fluid to keep your urine pale yellow. Keep all follow-up visits. This is important. Contact a health care provider if: Your symptoms do not get better after 1 2 days. Your symptoms go away and then return. Get help right away if: You have severe pain in your back or your lower abdomen. You have a fever or chills. You have nausea or vomiting. Summary A urinary tract infection (UTI) is an infection of any part of the urinary tract, which includes the kidneys, ureters, bladder, and urethra. Most urinary tract infections are caused by bacteria in your genital area. Treatment for this condition often includes antibiotic medicines. If you were prescribed an antibiotic medicine, take it as told by your health care provider. Do not stop using the antibiotic even if you start to feel better. Keep all follow-up visits. This is important. This information is not intended to replace advice given to you by your health care provider. Make sure you discuss any questions you have with your health care provider. Document Revised: 01/13/2021 Document Reviewed: 01/13/2021 [employer] Patient Education 2022 [employer]. Follow Up Care 01/03/2024 13:18:43 With:Byron MOLINA, [place], URO Address: When: Unknown Comments:our materials scheduler will be calling you to schedule cystoscopy/UD [facility] 01-16-2024 Note Patient Education Obstetrics and Gynecology Urinary Tract Infection, Adult A urinary tract infection (UTI) is an infection of any part of the urinary tract. The urinary tract includes the kidneys, ureters, bladder, and urethra. These organs make, store, and get rid of urine in the body. An upper UTI affects the ureters and kidneys. A lower UTI affects the bladder and urethra. What are the causes? Most urinary tract infections are caused by bacteria in your genital area around your urethra, where urine leaves your body. These bacteria grow and cause inflammation of your urinary tract. What increases the risk? You are more likely to develop this condition if: ? You have a urinary catheter that stays in place. ? You are not able to control when you urinate or have a bowel movement (incontinence). ? You are female and you: ? Use a spermicide or diaphragm for control. ? Have low estrogen levels. ? Are . ? You have certain genes that increase your risk. ? You are sexually active. ? You take antibiotic medicines. ? You have a condition that causes your flow of urine to slow down, such as: ? An enlarged prostate, if you are male. ? Blockage in your urethra. ? A kidney stone. ? A nerve condition that affects your bladder control (neurogenic bladder). ? Not getting enough to drink, or not urinating often. ? You have certain medical conditions, such as: ? Diabetes. ? A weak disease-fighting system (immunesystem). ? Sickle cell disease. ? Gout. ? Spinal cord injury. What are the signs or symptoms? Symptoms of this condition include: ? Needing to urinate right away (urgency). ? Frequent urination. This may include small amounts of urine each time you urinate. ? Pain or burning with urination. ? Blood in the urine. ? Urine that smells bad or unusual. ? Trouble urinating. ? Cloudy urine. ? Vaginal discharge, if you are female. ? Pain in the abdomen or the lower back. You may also have: ? Vomiting or a decreased appetite. ? Confusion. ? Irritability or tiredness. ? A fever or chills. ? Diarrhea. The first symptom in older adults may be confusion. In some cases, they may not have any symptoms until the infection has worsened. How is this diagnosed? This condition is diagnosed based on your medical history and a physical exam. You may also have other tests, including: ? Urine tests. ? Blood tests. ? Tests for STIs (sexually transmitted infections). If you have had more than one UTI, a cystoscopy or imaging studies may be done to determine the cause of the infections. How is this treated? Treatment for this condition includes: ? Antibiotic medicine. ? Liur-ind-yorohin medicines to treat discomfort. ? Drinking enough water to stay hydrated. If you have frequent infections or have other conditions such as a kidney stone, you may need to see a health care provider who specializes in the urinary tract (urologist). In rare cases, urinary tract infections can cause sepsis. Sepsis is a life-threatening condition that occurs when the body responds to an infection. Sepsis is treated in the hospital with IV antibiotics, fluids, and other medicines. Follow these instructions at home: Medicines ? Take vtga-wet-oxfhwcw and prescription medicines only as told by your health care provider. ? If you were prescribed an antibiotic medicine, take it as told by your health care provider. Do not stop using the antibiotic even if you start to feel better. General instructions ? Make sure you: ? Empty your bladder often and completely. Do not hold urine for long periods of time. ? Empty your bladder after sex. ? Wipe from front to back after urinating or having a bowel movement if you are female. Use each tissue only one time when you wipe. ? Drink enough fluid to keep your urine pale yellow. ? Keep all follow-up visits. This is important. Contact a health care provider if: ? Your symptoms do not get better after 1?2 days. ? Your symptoms go away and then return. Get help right away if: ? You have severe pain in your back or your lower abdomen. ? You have a fever or chills. ? You have nausea or vomiting. Summary ? A urinary tract infection (UTI) is an infection of any part of the urinary tract, which includes the kidneys, ureters, bladder, and urethra. ? Most urinary tract infections are caused by bacteria in your genital area. ? Treatment for this condition often includes antibiotic medicines. ? If you were prescribed an antibiotic medicine, take it as told by your health care provider. Do not stop using the antibiotic even if you start to feel better. ? Keep all follow-up visits. This is important. This information is not intended to replace advice given to you by your health care provider. Make sure you discuss any questions you have with your health care provider. Document Revised: 01/13 (more content not included)... [facility] 12-27-2023 Evaluation note Authored December 27, 2023 11:4 6am Nurse visit performed by Phylicia Neal LPN [facility] Work Phone: 1(384) 926-281307-12-2024 Evaluation note* Author Dennise Neal [facility] Authored December 27, 2023 11:4 6am Nurse visit performed by Phylicia Neal LPN Author Radha Suarez [facility] Authored February 10, 2024 12 :51pm The above note written by Mau VIRK acting as human recorder, note dictated by Dr. Sunil Torre. 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 Clinically she has been stable. She does still have neuropathic itching. It has not really responded to anything- gabapentin, lyrica, creams, anti-histamines, etc. She and her are expecting another grandchild. Her does feel that the distraction of her grandchildren is one of the best antidotes to the itching. She had new imaging and is here to review with me. 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 Pls don't drive/EtOH use after this medication. ciprofloxacin (Cipro) 500 mg tablet 500 mg. citalopram (CeleXA) 10 mg tablet Take 1 tablet every day by oral route. gabapentin (Neurontin) 300 mg capsule Take 900 mg by mouth in the morning and 900 mg at noon and 900 mg in the evening. multivitamin capsule Take by mouth. sour pitts extract (Tart Pitts Extract) 1,000 mg capsule Tart Ptits Extract spironolactone (Aldactone) 100 mg tablet Take 1 tablet every day by oral route. turmeric 400 mg capsule turmeric No current facility-administered medications on file prior to visit. Allergies Allergen Reactions Amoxicillin Methylprednisolone Minocycline Sulfamethoxazole-Trimethoprim Exam; BP 134/84 (BP Location: Left arm, Patient Position: Sitting, BP Cuff Size: Adult) Pulse 76 Temp 36.7 ???C (98 ???F) Ht 1.727 m (5' 8 ) Wt 60.3 kg (133 lb) LMP (LMP Unknown) SpO2 100% BMI 20.22 kg/m??? Age appropriate yes family present - her NC/AT Well developed, well nourished Mood/affect normal Awake, alert, oriented CN intact Speech intact Cognition intact Motor: intact Sensory: intact Ambulatory Station intact Coordination intact Reflexes: Review of films; I personally reviewed and interpreted her imaging for her I showed her the area where the original tumor was - there is no evidence of recurrence I also showed her the syrinx - this is much smaller over time The lower/distal cord also does not show any clear evidence of tumor recurrence Her spinal alignment is stable over time A/P: 53 y/o woman - has 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 Overall she is clinically stable. I recommend that she continue to follow the tumor with serial imaging - probably at a yearly interval for the time being. I will order her new c/t/l spine MRI w/wout contrast to continue to follow the tumor. I can see her back sooner if needed. [facility] Evaluation note* Encounter Date Diagnosis Assessment Notes Treatment Notes Treatment Clinical Notes Jun, Dysuria (ICD-10 - R30.0) Discussed diagnosis and dipstick findings with patient. Advised that dipstick shows no evidence of UTI. No culture sent today. Patient states that she has been feeling rundown lately, advised that she may have the symptoms related to a viral illness. Encouraged patient to push fluids. Follow-up with PCP or [facility] on Saturday if symptoms do not improve over the weekend. Immediate evaluation ER for signs/symptoms as discussed. Patient verbalizes understanding and is agreeable with treatment plan [employer] Other [id number] Evaluation note* Encounter Date Diagnosis Assessment Notes Treatment Notes Treatment Clinical Notes Jun, Anxiety (ICD-10 - F41.9) [employer] Other 12-19-2023 Evaluation note* Encounter Date Diagnosis Assessment Notes Treatment Notes Treatment Clinical Notes May, Lumbar pain (ICD-10 - M54.5) May, GERD (gastroesophageal reflux disease) (ICD-10 - K21.9) [employer] Other 06-26-2023 Evaluation note* Encounter Date Diagnosis Assessment Notes Treatment Notes Treatment Clinical Notes Nov, Lumbar pain (ICD-10 - M54.5) Nov, Anxiety (ICD-10 - F41.9) [employer] Other 04-17-2023 Evaluation note* Encounter Date Diagnosis Assessment Notes Treatment Notes Treatment Clinical Notes Sep, Anxiety (ICD-10 - F41.9) [employer] Other 04-11-2023 Evaluation note* Encounter Date Diagnosis Assessment Notes Treatment Notes Treatment Clinical Notes Sep, Sinus drainage (ICD-10 - J34.89) Patient is to keep appointment with Dr. Richter next month. Sep, Sound sensitivity in both ears (ICD-10 - H83.3X3) Patient is scheduled in October with Dr. Richter. Encouraged patient to keep this appointment. Sep, Right hip crepitus (ICD-10 - M24.851) Patient did voice some pain with movement or stretches of the right hip but did note some tenderness upon palpation. We will obtain XR and patient was also provided with prednisone for the itch and will hopefully with the hip pain as well. We will continue to monitor. Sep, Itch (ICD-10 - L29.9) I did prescribe the above prednisone regimen and also provided a prescription for hydroxyzine as needed. Sep, Pain in right hip (ICD-10 - M25.551) XR ordered to rule out abnormalities. Sep, Pain in left hip (ICD-10 - M25.552) XR ordered to rule out abnormalities. [employer] Other 02-07-2023 Evaluation note* Encounter Date Diagnosis Assessment Notes Treatment Notes Treatment Clinical Notes Jul, GERD (gastroesophageal reflux disease) (ICD-10 - K21.9) Patient is to continue with the above medication as needed. Jul, Lumbar pain (ICD-10 - M54.5) Patient is to continue with the above medication. Jul, Impacted cerumen of left ear (ICD-10 - H61.22) Noted upon examination. Therefore, ear lavage preformed today in the office to the left ear. After a few attempts of the lavage I was unable to remove the wax. Therefore I advised the patient to lemon picker OTC debrox. I also suggest the patient try OTC mucinex for the plugged sensation. Jul, Itching of ear (ICD-10 - L29.9) I did prescribe the above medication cream for patient to apply on a q-tip and rub on the inside of the ear. We will continue to monitor. [employer] Other 01-04-2023 Evaluation note* Encounter Date Diagnosis Assessment Notes Treatment Notes Treatment Clinical Notes Jun, Anxiety (ICD-10 - F41.9) [employer] Other 12-21-2022 Evaluation note* Encounter Date Diagnosis Assessment Notes Treatment Notes Treatment Clinical Notes May, Lumbar pain (ICD-10 - M54.5) [employer] Other 10-19-2022 Evaluation note* Encounter Date Diagnosis Assessment Notes Treatment Notes Treatment Clinical Notes Mar, Lumbar pain (ICD-10 - M54.5) [employer] Other 10-18-2022 Evaluation note* Encounter Date Diagnosis Assessment Notes Treatment Notes Treatment Clinical Notes Mar, Ear pain, right (ICD-10 - H92.01) Both ears are clear and no redness noticed upon exaimnation. If this persist I encouraged the patient to take zytrec otc for ten days. Mar, Lumbar pain (ICD-10 - M54.5) Patient is to continu with the above medication. 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 Flores noted interval expansion of the larger of the 2 cystic lesions within the cervical cord with evidence of interval hemorrhage. There is interval decompression of a syrinx in the upper cervical cord with a similar to perhaps slightly smaller second cystic structure in the lower cervical cord/cervical thoracic junction. Patient is to continue to folllow with Dr. Flores as scheduled. Mar, GERD (gastroesophageal reflux disease) (ICD-10 - K21.9) I advised the patient to avoid spicy foods. I did prescribe the carafate for patient to take a break from the nexium. Most recent EGD with Dr. Majano was done June 2020. We will continue to monitor. [employer] Other 07-20-2022 Evaluation note* Encounter Date Diagnosis Assessment Notes Treatment Notes Treatment Clinical Notes Dec, Thoracic back pain (ICD-10 - M54.6) Dec, Anxiety (ICD-10 - F41.9) [employer] Other 04-22-2022 Evaluation note* Encounter Date Diagnosis Assessment Notes Treatment Notes Treatment Clinical Notes Sep, Thoracic back pain (ICD-10 - M54.6) [employer] Other 04-13-2022 Evaluation note* Encounter Date Diagnosis Assessment Notes Treatment Notes Treatment Clinical Notes Sep, Thoracic back pain (ICD-10 - M54.6) The patient continues to have thoracic back pains and lyrica is beneficial for her. Refill e-scribed. Sep, ROBERTH positive (ICD-10 - R76.8) The patient does have a positive ROBERTH and consulted with Dr. Leyva who advised her she does not have any signs of an autoimmune disorder and feels her symptoms are more related to her nerves. She is also being treated by Dr. Jean for accupuncture treatment which I encouraged her to continue with if this is beneficial for her. Sep, Chest pain (ICD-10 - R07.9) The patient does admit to having pain in her chest describign it as a cramping feeling with difficulty raising her left arm at the time. Last EKG performed 06/2021 with normal findings. I did advise her if this continues, she is to let the office know. Sep, Bunion (ICD-10 - M20.10) The patient does have a painful bunion of her left foot. I did suggest referring her to podiatry, she was in agreement. Referral initiated. [employer] Other 02-16-2022 Evaluation note* Encounter Date Diagnosis Assessment Notes Treatment Notes Treatment Clinical Notes Jul, ROBERTH positive (ICD-10 - R76.8) Jul, Joint pain (ICD-10 - M25.50) [employer] Other 01-13-2022 Evaluation note* Encounter Date Diagnosis Assessment Notes Treatment Notes Treatment Clinical Notes Jun, Thoracic back pain (ICD-10 - M54.6) [employer] Other 01-05-2022 Evaluation note* Encounter Date Diagnosis Assessment Notes Treatment Notes Treatment Clinical Notes Jun, Wellness examination (ICD-10 - Z00.00) Personalized health advice was given to the beneficiary with a referral, if appropriate, to health education of preventative counseling services or programs aimed at reducing identified risk factors and improving self-management or community-based lifestyle interventions to reduce health risks and promote self-management and wellness, including weight loss, physical activity, smoking cessation, fall prevention and nutrition. A written plan for screenings discussed, including colonoscopy, mammography, flu vaccination, other vaccinations if at risk, routine lab studies, eye exams, glaucoma screening, skin checks, risk factors for medical problems discussed, including BP control, obesity, and need for consistent exercise. Counseling was provided here today - specifically in regard to any positively answered questions as noted above. Jun, Onychomycosis (ICD-10 - B35.1) Mycotic right great toenail is noted today and we discussed treatment. She has used Jun, Other Patient is u p to date on preventative medicine, will see gyncology in . Vaccines deferred to pharmacy. She follows with neurologist every 6 months. [employer] Other 12-16-2021 Evaluation note* Encounter Date Diagnosis Assessment Notes Treatment Notes Treatment Clinical Notes May, Anxiety (ICD-10 - F41.9) [employer] Other 12-10-2021 Evaluation note* Encounter Date Diagnosis Assessment Notes Treatment Notes Treatment Clinical Notes May, Contact with and (suspected) exposure to other viral communicable diseases (ICD-10 - Z20.828) May, Viral upper respiratory illness (ICD-10 - J06.9) Drink plenty of fluids, get plenty of rest. Take Tylenol or Motrin as needed for aches pains or fevers. Follow-up with your family physician if no improvement by Saturday to consider an order for a PCR Covid test. May, Other Additional time spent conducting pre-visit phone call, screening for symptoms, instructions on social distancing, application and removal of PPE, and cleaning of examination room, equipment and supplies was preformed. Patient education given for testing methodology and results. Patient care instructions given in writting by [employer] document. Additional time spent conducting pre-visit phone call, screening for symptoms, instructions on social distancing, application and removal of PPE, and cleaning of examination room, equipment and supplies was preformed. Patient education given for testing methodology and results. Patient care instructions given in writting by [employer] document. [employer] Other 11-22-2021 Evaluation note* Encounter Date Diagnosis Assessment Notes Treatment Notes Treatment Clinical Notes Apr, Encounter for screening for other viral diseases (ICD-10 - Z11.59) Apr, Other Additional time spent conducting pre-visit phone call, screening for symptoms, instructions on social distancing, application and removal of PPE, and cleaning of examination room, equipment and supplies was preformed. Patient education given for testing methodology and results. Patient care instructions given in writting by [employer] document. [employer] Other 11-09-2021 Evaluation note* Encounter Date Diagnosis Assessment Notes Treatment Notes Treatment Clinical Notes Apr, Thoracic back pain (ICD-10 - M54.6) Patient states she continues to have a significant amount of pain despite using the above medication. She reports weight gain of approx. 8lbs since starting the Lyrica. She will be going back to see Dr. Bae for back injections. I do believe she has something going on with her nerve endings causing her health issues. Encouraged patient to continue with the Lyrica. We will continue to monitor. Apr, Edema (ICD-10 - R60.9) Encouraged patient to continue on the above medications 2-3 times per week as directed as she does notice improvement in the swelling while taking it. We will continue to monitor. Apr, Postprandial abdominal pain in right upper quadrant (ICD-10 - R10.11) Patient reports abdominal pains since starting on her Apr, Anxiety (ICD-10 - F41.9) She does feel the citalopram helps her but she states she is tired of her health issues and wishes she could get the itching under control and her back pain is very bothersome for her. I did suggest we increase her Celexa to help manage her anxiety regarding her ongoing health issues. Patient is in agreement. We will continue to monitor. Apr, Itching (ICD-10 - L29.9) Per patient, she states she saw Dr. Bean who prescribed her oral and topical medications to try to help resolve her itching which did not help. We will continue to monitor. [employer] Other 07-18-2011 History general Narrative - Reported* Type Description Date Medical History [facility] Medical History 01-01-2011 Stress Test Medical History childbirth X 2 Medical History gallbladder/ Upper GI 01/2013 Medical History IUD placed 03/2012, removed 07/19 018 Medical History 07/21/14-colonoscopy with Dr. Adrienne schaefer Medical History 08/2018 gallbladder US- negative Medical History 08/2018 EMG- remote SI radiculopa thy Medical History 10/2018 Spinal Cord Mass Medical History 2020 steroid shot in back Surgical History IUD Surgical History C section Surgical History c-spine s/p resection. 10/2018 Hospitalization History [facility] 1990 199 7 [employer] Other 07-18-2011 History general Narrative - Reported* Type Description Date Medical History 2008 [facility] Medical History 01-01-2011 Stress Test Medical History childbirth X 2 Medical History gallbladder/ Upper GI 01/2013 Medical History IUD placed 03/2012, removed 07/19 018 Medical History 07/21/14-colonoscopy with Dr. Adrienne schaefer Medical History 08/2018 gallbladder US- negative Medical History 08/2018 EMG- remote SI radiculopa thy Medical History 10/2018 Spinal Cord Mass Medical History 2020 steroid shot in back Surgical History IUD Surgical History C section Surgical History c-spine s/p resection. 10/2018 Surgical History cholecystectomy Hospitalization History [facility]IL[facility]IRTH 1989 199 7 [employer] Other 07-18-2011 History general Narrative - Reported* Type Description Date Medical History 2009 pelvic exam done at [facility] Medical History 01-01-2011 Stress Test Medical History childbirth X 2 Medical History gallbladder/ Upper GI 01/2013 Medical History IUD placed 03/2012, removed 07/19 018 Medical History 07/21/14-colonoscopy with Dr. Adrienne schaefer Medical History 08/2018 gallbladder US- negative Medical History 08/2018 EMG- remote SI radiculopa thy Medical History 10/2018 Spinal Cord Mass Medical History 2020 steroid shot in back Medical History 05/2020 Colonoscopy Surgical History IUD Surgical History C section Surgical History c-spine s/p resection. 10/2018 Surgical History cholecystectomy Hospitalization History [facility]IL[facility]IRTH 1989 199 7 [employer] Other 07-18-2011 History general Narrative - Reported* Type Description Date Medical History 2009 pelvic exam done at [facility] Medical History 01-01-2011 Stress Test Medical History childbirth X 2 Medical History gallbladder/ Upper GI 01/2013 Medical History IUD placed 03/2012, removed 07/19 018 Medical History 07/21/14-colonoscopy with Dr. Adrienne schaefer Medical History 08/2018 gallbladder US- negative Medical History 08/2018 EMG- remote SI radiculopa thy Medical History 10/2018 Spinal Cord Mass Medical History 2020 steroid shot in back Medical History 05/2020 Colonoscopy Surgical History IUD Surgical History C section Surgical History c-spine ependymoma resection. Surgical History cholecystectomy Hospitalization History CHILDBIRTH 1989 199 7 [employer] Other 07-18-2011 History general Narrative - Reported* Type Description Date Medical History 2009 pelvic exam done at [facility] Medical History 01-01-2011 Stress Test Medical History childbirth X 2 Medical History gallbladder/ Upper GI 01/2013 Medical History IUD placed 03/2012, removed 07/19 018 Medical History 07/21/14-colonoscopy with Dr. Adrienne schaefer Medical History 08/2018 gallbladder US- negative Medical History 08/2018 EMG- remote SI radiculopa thy Medical History 10/2018 Spinal Cord Mass Medical History 2020 steroid shot in back Medical History 05/2020 Colonoscopy Medical History 06/2022 Mammogram @ [facility] Surgical History IUD Surgical History C section Surgical History c-spine ependymoma resection. Surgical History cholecystectomy Hospitalization History CHILDBIRTH 1989 199 7 [facility] [employer] Other Evaluation + Plan note No data available for this section [facility] evaluation [facility]No [facility] [employer] Other Evaluation noteNo assessment information available [facility] Work Phone: Evaluation note* Diagnosis Onset Date Resolution Status Leukocytes in urine noneacti ve [facility] Work Phone: Evaluation note* Diagnosis Onset Date Resolution Status Viral URI with cough acute [facility] Work Phone: Evaluation note* Diagnosis Onset Date Resolution Status Viral URI with cough resolve d Recent urinary tract infection acute [facility] Work Phone: Progress note No data available for this section [facility] Summary Purpose Family History No Family History Records Found Relationship Condition Age at Onset Recorded Date/T issac Not Specified Coronary artery disease Unknown Relationship Condition Age at Onset Recorded Date/T issac Not Specified Coronary artery disease Unknown father Chronic obstructive pulmonary disease Unk nown grandparent Unknown Heart disease Unknown Myocardial infarction Unknown Rheumatoid arthritis Unknown Not Specified Heart disease Unknown Hypertension Unknown Not Specified Hypertension Unknown Relationship Condition Age at Onset Recorded Date/T issac mother Coronary artery disease Unknown father Chronic obstructive pulmonary disease Unk nown grandparent Unknown Heart disease Unknown Myocardial infarction Unknown Rheumatoid arthritis Unknown mother Heart disease Unknown Hypertension Unknown mother Hypertension Unknown Advance Directives No Advanced Directives Records Found Advance Directive Response Recorded Date/ Time Advance Directives No January 17 4:39pm Advance Directive Response Recorded Date/ Time Advance Directives No January 17 3:39pm Reason for Referral Reason consult and fareed at ; painful bunion of left foot Diagnosis 1 Bunion (M20.10) Referral Organization [facility] Referring Provider First Name Sunil Referring Provider Last Name Nicho Referring Provider Specialty Family Prac cheyanne Referred Organization [facility] Referred Provider Lowell Matt Referred Address [address], [place],[address] Referred Provider Specialty Podiatry - S urgical Chiropody Referral Priority Routine General Notes Sunita Hunt 022 12:01:40 PM >Received today Sunita Hunt 09/28/2021 08:15:35 AM >Waiting for office notes to be locked before sending the referral Reason consult and treat Diagnosis 1 Joint pain (M25.50) Diagnosis 2 ROBERTH positive (R76.8) Referral Organization [facility] [place] Referring Provider First Name Sunil Referring Provider Last Name Nicho Referring Provider Specialty Family Prac cheyanne Referred Organization [facility] Referred Address [address] [place],[address] Referred Provider Specialty Rheumatology Referral Priority Routine General Notes Teresa Suarez 01:32:39 PM >I tired to call up to [place] but no answer for half hour. Chief Complaint and Reason for Visit Chief Complaint d43.4 Chief Complaint c71.9 Chief Complaint M24.851 M25.551 M25. 552 C71.9 Chief Complaint Wellness Z00.00 Poss Uti urinary frequency - collect specimen Chief Complaint Wellness Z00.00 Poss Uti urinary frequency - collect specimen r82.998 Reason for Visit Leukocytes in urine Chief Complaint sore throat, headach e Reason for Visit Viral URI with cough Chief Complaint sore throat, headach e C71.9 D49.7 Reason for Visit Viral URI with cough Chief Complaint sore throat, headach e C71.9 D49.7 C71.9 D49.7 Reason for Visit Viral URI with cough Chief Complaint sore throat, headach e C71.9 D49.7 C71.9 D49.7 UA Reason for Visit Viral URI with cough Recent urinary tract infection Chief Complaint sore throat, headach e C71.9 D49.7 C71.9 D49.7 UA Reason for Visit Viral URI with cough Anxiety Recent urinary tract infection Chief Complaint sore throat, headach e C71.9 D49.7 C71.9 D49.7 UA Z87.440 med check Reason for Visit Viral URI with cough Anxiety Recent urinary tract infection Urethra disorder Rash Itching Right shoulder pain Chief Complaint sore throat, headach e C71.9 D49.7 C71.9 D49.7 UA Z87.440 med check N36.9 R23.2 Reason for Visit Viral URI with cough Anxiety Recent urinary tract infection Urethra disorder Hot flashes Rash Itching Right shoulder pain Chief Complaint C71.9 D49.7 UA Z87.440 med check N36.9 R23.2 Reason for Visit Anxiety Recent urinary tract infection Urethra disorder Hot flashes Rash Itching Right shoulder pain Additional Source Comments INFORMATION SOURCE (unrecogn ized section and content) DATE CREATED AUTHOR 12/05/2018 [facility] DATE CREATED AUTHOR AUTHOR'S ORGANIZ ATION 09/06/2021 [facility] DATE CREATED AUTHOR AUTHOR'S ORGANIZ ATION 10/11/2021 [facility] DATE CREATED AUTHOR AUTHOR'S ORGANIZ ATION 07/02/2022 [facility] DATE CREATED AUTHOR AUTHOR'S ORGANIZ ATION 11/24/2023 [facility] EPIC DATE CREATED AUTHOR AUTHOR'S ORGANIZ ATION 01/02/2024 [facility] DATE CREATED AUTHOR AUTHOR'S ORGANIZ ATION 03/05/2024 [facility] DATE CREATED AUTHOR AUTHOR'S ORGANIZ ATION 03/13/2024 [facility] REASON FOR VISIT (unrecogniz ed section and content) 3 m f/uClinical#27 ZAMORA ESCA PE, EXPOSEDClinicalNo Informationwellness#14 ZAMORA ESCAPE, H/A, NAUSEA, COUGHClinicalrefillClinicalFOLLOW UPrefillRefills2 month Follow up lumbar pain /anxietyRefillsRefillsRefillfollow up2 month Follow up earsmedicationRefillsRefillclincialPOSS UTIRefills Care Teams (unrecognized sec tion and content) Team Status: Inactive Member Role Status Dates Sunil Torre DO Primary Care Provider Active Lisandro Flroes MD Attending Provider Active Team Status: Active Member Role Status Dates Sunil Torre DO Primary Care Provider Active Team Status: Inactive Member Role Status Dates Sunil Torre DO Primary Care Provider, Attending Provi michael Active Team Status: Inactive Member Role Status Dates Sunil Torre DO Attending Provider Active Start: May 27, 2023 End: May 27, 2023 Team Status: Inactive Member Role Status Dates Sunil Torre DO Primary Care Provide r, Attending Provider Active Start: May 31, 2023 End: May 31, 2023 Team Status: Inactive Member Role Status Dates Georgia Washington APRN Attending Provider Active Start: June 28, 2023 End: June 28, 2023 Team Status: Inactive Member Role Status Dates Sunil Torre DO Primary Care Provide r, Attending Provider Active Start: August 02, 2023 End: August 02, 2023 Team Status: Inactive Member Role Status Dates Sunil Torre DO Primary Care Provider Active Sta rt: November 17, 2023 End: November 17, 2023 Kim Garcia APRN Attending Provider Active Start: November 17, 2023 End: November 17, 2023 Team Status: Inactive Member Role Status Dates Sunil Torre DO Primary Care Provider Active Sta rt: November 18, 2023 End: November 18, 2023 Lisandro Flores MD Attending Provider Active Start: November 18, 2023 End: November 18, 2023 Team Status: Inactive Member Role Status Dates Sunil Torre DO Primary Care Provider Active Sta rt: December 16, 2023 End: December 16, 2023 Lisandro Flores MD Attending Provider Active Start: December 16, 2023 End: December 16, 2023 Team Status: Inactive Member Role Status Stan Torre DO Primary Care Provide r, Attending Provider Active Start: December 27, 2023 End: December 27, 2023 Team Status: Inactive Member Role Status Dates Sunil Torre DO Primary Care Provide r, Attending Provider Active Start: February 10, 2024 End: February 10, 2024 Team Status: Inactive Member Role Status Dates Sunil Torre DO Primary Care Provide r, Attending Provider Active Start: February 11, 2024 End: February 11, 2024 Team Status: Inactive Member Role Status Dates Estephania Matthews MD Attending Provider Active Start : February 27, 2024 End: February 27, 2024 Goals (unrecognized section and content) Goals may be documented in a n alternate section FOR RECORDS PERTAINING TO PATIENTS WHO ARE OR HAVE BEEN ENROLLED IN A CHEMICAL DEPENDENCY/SUBSTANCEABUSE PROGRAM, SOME INFORMATION MAY BE OMITTED. This clinical summary was aggregated from multiple sources. Caution should be exercised in using it in the provision of clinical care. This summary normalizes information from multiple sources, and as a consequence, information in this document may materially change the coding, format and clinical context of patient data. In addition, data may be omitted in some cases. CLINICAL DECISIONS SHOULD BE BASED ON THE PRIMARY CLINICAL RECORDS. [facility] [employer] [facility]. provides no warranty or guarantee of the accuracy or completeness of information in this document.
[2024-03-18 13:06] VITALS: BP 127/91; PULSE 86; TEMP 36.1; O2SAT 99
[2024-03-18] MEDS: LACTATED RINGER'S SOLUTION 1,000 ML 50 ML IV (13:08)
[2024-03-18] MEDS: CEFAZOLIN SODIUM 2 GM/50 ML D5W PREMIX IV (13:52)
[2024-03-18 14:40] VITALS: BP 105/69; PULSE 77; TEMP 36.7; O2SAT 99
--- NOTE | 2024-03-18 14:40 | P.URON_ITS ---
Urology Surgery Operative Note Operative Note Procedure Date: 03/18/24 Time Out Performed: yes Pre-op Diagnosis: 1. Urethral tumor 2. Urethral stenosis 3. Recurrent UTIs Post-op Diagnosis: same as pre-op Procedures performed: 1. Cystoscopy, urethral dilation 2. Urethral biopsy with fulguration Anesthesia: MAC (Dr. White) Primary Surgeon: Estephania Matthews Complications: none Estimated blood loss (mL): 0 Findings: Tight meatus, dilated to 28Fr. Papillary like polyp/tumor at bladder neck/proximal urethra at 11 and 1 o'clock position with few surrounding fronds on the patient's right. Cold cup biopsy of more prominent growths. Pinpoint fulguration. No bladder tumors, lesions or foreign bodies. Mild stage 1 anterior/posterior prolapse/pelvic floor laxity. Moderate vaginal atrophy. Specimens: urethral tumor Drains: 14Fr 2way silicone carter, 10 cc in balloon Indications for Procedures: 53 year old female with history of recurrent UTIs and urethral stenosis was evaluated and found to have urethral tumors vs inflammation on cystoscopy. Tight urethra, unable to tolerate cystoscopy well awake. Urine cytology negative. After discussion of risks/benefits of management options, patient elected to proceed with cystoscopy, urethral biopsy and dilation under anesthesia. Detailed description of Procedure: After informed consent was obtained, the patient was brought to the operating room and transferred onto the operating table in supine position. Sequential compression devices were placed on bilateral lower extremities. The patient received the appropriate dose of preoperative IV antibiotics and MAC anesthesia was induced. They were positioned in modified dorsolithotomy with the appropriate pressure points padded, prepped, and draped in the usual sterile fashion for this procedure. An operative safety timeout was performed confirming the patient's identity and procedure, and all present agreed to proceed. I began by attempting to insert a 22 Vietnamese rigid cystoscope with 30 degree lens into the patient's urethra and bladder, unable to advance due to urethral stenosis. Starting at 16Fr, sequential Jewitt dilators were used to dilate the urethra to 28Fr, with mild difficulty due to tightness. The cystoscope was then inserted without difficulty. Urethra as noted as above. There were no bladder tumors, lesions, stones or foreign bodies. Bilateral ureteral orifices were orthotopic and patent. Cold cup biopsy forceps were used to biopsy the prominent urethral tumors at 1 and 11 o'clock, specimens sent for pathology. Selective pinpoint monopolar electrocautery bugbee was used for spot fulguration for adequate hemostasis. The cystoscope was removed. A 14fr carter catheter was inser alexy without difficulty, 10 cc in balloon. Pelvic exam was performed with findings as above. The patient tolerated the procedure well without complication. The patient was awakened from anesthesia and sent to the PACU in stable condition. Plan: Dc home, remove carter at home tomorrow if urine clear. Follow up in 1-2 wks for pathology review
[2024-03-18 14:55] VITALS: BP 129/83; PULSE 76; O2SAT 99
[2024-03-18 15:30] VITALS: BP 121/85; PULSE 81; O2SAT 100
== END 2024-03-18 15:30 | disposition home or self-care (01) ==
PROVIDERS: PCP Family Medicine; Visit Provider Urology
PROC: (CPT 910; principal; 2024-03-18 13:30)
DX: N36.2 Urethral caruncle (principal); N30.80 Other cystitis without hematuria; N35.92 Unspecified urethral stricture, female; Z87.440 Personal history of urinary (tract) infections; N81.89 Other female genital prolapse; N95.2 Postmenopausal atrophic vaginitis; Z87.891 Personal history of nicotine dependence; Z90.49 Acquired absence of other specified parts of digestive tract; K21.9 Gastro-esophageal reflux disease without esophagitis
CPT/HCPCS: 52224; 36415; 88305; J0690; J2405; J2704; J3010